=== PATIENT | male | born 1980 | race Two or more races ===

== ENCOUNTER 2016-04-17 14:01 | Inpatient (IN) | payer MEDICAID ==
--- NOTE | 2016-04-17 14:22 | ER Document Report ---
ED Hip Pain/Injury - General Stated Complaint: FALL/HIP PAIN Mode of Arrival: Medic Information source: Patient, Relative TRAVEL OUTSIDE OF THE [place] IN LAST 30 DAYS: No - HPI Patient complains to provider of: Injury - FELL Occurred: Just prior to arrival Where: Home Onset/Duration: Sudden Quality of pain: Sharp Severity: Severe Context: Fell/tripped Symptoms prior to fall: None Symptoms since fall: denies: Chest pain, Dizzy/light-headed, Rapid heart rate, Vomiting/diarrhea Skin Color: Normal Skin Temperature: Warm Rotation of extremity: Outward Pain with palpation of the pelvis: No Use of anticoagulant: No: ASA, Lovenox, Plavix, Pradexa, Warfarin Associated Symptoms: None Other injuries: LUE - ELBOW ABRASION, NO BONY TENDERNESS - Related Data Allergies/Adverse Reactions: Penicillins Allergy (Verified 12/10/14 19:34) Past Medical History - General Information source: Patient, Relative - Social History Smoking Status: Former Smoker Frequency of alcohol use: Rare Drug Abuse: None Lives with: Spouse/Significant other Family History: Reviewed & Not Pertinent Patient has suicidal ideation: No Patient has homicidal ideation: No - Past Medical History Cardiac Medical History: Reports: None Pulmonary Medical History: Reports: Hx Asthma - DX AT THE AGE 7 Neurological Medical History: Reports: None Endocrine Medical History: Reports: Hx Diabetes Mellitus Type 2 - DX 2 YEARS AGO Renal/ Medical History: Reports: None Malignancy Medical History: Reports None GI Medical History: Reports: None Musculoskeltal Medical History: Reports Hx Muscular Dystrophy Psychiatric Medical History: Reports: None Past Surgical History: Reports: Hx Adenoidectomy, Hx Tonsillectomy - 13 YEARS OLD - Immunizations Immunizations up to date: Yes Hx Diphtheria, Pertussis, Tetanus Vaccination: No Review of Systems - Review of Systems Constitutional: No symptoms reported EENT: No symptoms reported Cardiovascular: No symptoms reported Respiratory: No symptoms reported Gastrointestinal: No symptoms reported Genitourinary: No symptoms reported Musculoskeletal: See HPI Skin: No symptoms reported Neurological/Psychological: No symptoms reported Physical Exam - Vital signs Vitals: Temp Pulse Resp BP Pulse Ox 98.2 F 92 18 153/105 H 95 04/17/16 14:13 04/17/16 14:13 04/17/16 14:13 04/17/16 14:13 04/17/16 14:13 Interpretation: Hypertensive - General General appearance: Appears well, Alert In distress: None - HEENT Head: Normocephalic Eyes: Normal Conjunctiva: Normal Ears: Normal Nasal: Normal Mouth/Lips: Normal Mucous membranes: Dry Pharynx: Normal Neck: Normal - Respiratory Respiratory status: No respiratory distress Breath sounds: Normal - Cardiovascular Rhythm: Regular Heart sounds: Normal auscultation Murmur: No - Abdominal Inspection: Normal Distension: No distension Bowel sounds: Normal - Extremities General upper extremity: Normal inspection General lower extremity: No: Normal inspection - R. L.E. SHORTENED, EXT. ROTATED. L. HIP TENDER, PAINFUL PASSIVE MOTION IN ANY PLANE. - Neurological Neuro grossly intact: Yes Cognition: Normal Orientation: AAOx4 - Psychological Associated symptoms: Normal affect, Normal mood - Skin Skin Temperature: Warm Skin Moisture: Dry Skin Color: Normal Skin Turgor: Elastic Course - Vital Signs Vital signs: Temp Pulse Resp BP Pulse Ox 98.0 F 97 22 H 160/103 H 99 04/17/16 15:47 04/17/16 15:47 04/17/16 15:47 04/17/16 16:01 04/17/16 16:01 - Laboratory Result Diagrams: 04/17/16 16:38 04/17/16 16:38 Laboratory results interpreted by me: 04/17/16 04/17/16 04/17/16 16:38 16:38 16:47 WBC 18.3 H MCH 26.3 L Seg Neutrophils % 89.4 H Lymphocytes % 5.9 L Absolute Neutrophils 16.4 H ESR 30 H Creatinine 0.32 L Glucose 270 H Magnesium 1.5 L Creatine Kinase < 20 L Albumin 3.3 L Urine Glucose (UA) >=500 H Urine Urobilinogen 4.0 H - EKG Interpretation by N[place] EKG shows normal: Sinus rhythm, [place], Intervals, QRS Complexes, ST-T Waves Rate: Tachycardia - Consults DR. STRINGER Time consulted: 16:00 Consulted provider: will come to ER DR. PANDYA Time consulted: 17:55 Reason for consultation: 04/17/16 18:04 AGREES TO EVALUATE & MANAGE MEDICAL STATUS Consulted provider: will see as inpatient Discharge - Discharge Clinical Impression: Muscular dystrophy Hip subtrochanteric fracture Qualifiers: Encounter type: initial encounter Fracture type: closed Fracture alignment: displaced Laterality: right Qualified Code(s): S72.21XA - Displaced subtrochanteric fracture of right femur, initial encounter for closed fracture Diabetes mellitus Qualifiers: Diabetes mellitus type: type 2 Diabetes mellitus complication status: without complication Diabetes mellitus custodial insulin use: without custodial use Qualified Code(s): E11.9 - Type 2 diabetes mellitus without complications Condition: Stable Disposition: ADMITTED INPATIENT Admitting Provider: MYKE Unit Admitted: Surgical Floor
[2016-04-17] MEDS ORDERED: NORMAL SALINE 1000 ML 1,000 ML IV ONE (14:38)
[2016-04-17] MEDS ORDERED: FENTANYL CITRATE INJ/PF 100 MCG/2 ML AMPUL IV ONE (16:09)
[2016-04-17 17:04] LABS: ABSOLUTE BASOPHILS # (AUTO) 0.1 10^3/uL (0.0-0.2); ABSOLUTE LYMPHOCYTES (AUTO) 1.1 10^3/uL (0.5-4.7); ABSOLUTE MONOCYTES (AUTO) 0.8 10^3/uL (0.1-1.4); ABSOLUTE NEUT (AUTO) 16.4 10^3/uL (1.7-8.2); BASOPHILS % (AUTO) 0.3 % (0-2); EOSINOPHILS % (AUTO) 0.2 % (0-6); HEMATOCRIT 42.9 % (37.9-51.0); HEMOGLOBIN 13.9 g/dL (13.5-17.0); HGB HCT DIFFERENCE -1.2; LYMPHOCYTES % (AUTO) 5.9 % (13-45); MEAN CORPUSCULAR HEMOGLOBIN 26.3 pg (27.0-33.4); MEAN CORPUSCULAR HGB CONC 32.5 g/dL (32.0-36.0); MEAN CORPUSCULAR VOLUME 81 fl (80-97); MONOCYTES % (AUTO) 4.2 % (3-13); RED BLOOD COUNT 5.28 10^6/uL (4.35-5.55); SEGMENTED NEUTROPHILS % (AUTO) 89.4 % (42-78); WHITE BLOOD COUNT 18.3 10^3/uL (4.0-10.5)
[2016-04-17 17:16] LABS: ALANINE AMINOTRANSFERASE 29 U/L (21-72); ALBUMIN 3.3 g/dL (3.5-5.0); ALKALINE PHOSPHATASE 124 U/L (38-126); ANION GAP 10 (5-19); ASPARTATE AMINO TRANSFERASE 21 U/L (17-59); BILIRUBIN,TOTAL 0.6 mg/dL (0.2-1.3); BLOOD UREA NITROGEN 12 mg/dL (7-20); CALCIUM 8.5 mg/dL (8.4-10.2); CARBON DIOXIDE 28 mmol/L (22-30); CHLORIDE 100 mmol/L (98-107); CREATININE RESULT 0.32 mg/dL (0.52-1.25); GLUCOSE 270 mg/dL (75-110); MAGNESIUM 1.5 mg/dL (1.6-2.3); PHOSPHORUS 3.2 mg/dL (2.5-4.5); POTASSIUM 4.4 mmol/L (3.6-5.0); SODIUM 137.6 mmol/L (137-145); TOTAL PROTEIN 6.4 g/dL (6.3-8.2)
[2016-04-17 17:18] LABS: CREATINE KINASE < 20 U/L (55-170)
[2016-04-17 17:27] LABS: CREATINE KINASE MB 0.36 ng/mL (<4.55); TROPONIN I < 0.012 ng/mL
[2016-04-17 17:27] LABS: APPEARANCE,URINE CLEAR; BILIRUBIN,URINE NEGATIVE (NEGATIVE); GLUCOSE, URINE >=500 mg/dL (NEGATIVE); KETONES,URINE NEGATIVE (NEGATIVE); LEUKOCYTE ESTERASE,URINE NEGATIVE (NEGATIVE); NITRITE,URINE NEGATIVE (NEGATIVE); PROTEIN,URINE NEGATIVE (NEGATIVE); URINE SPECIFIC GRAVITY 1.028
[2016-04-17 17:47] LABS: ERYTHROCYTE SEDIMENTATION RATE 30 mm/hr (0-15)
--- NOTE | 2016-04-17 18:20 | PDOC H&P ---
History of Present Illness Admission Date/PCP: JENNA CAMPA MD Patient complains of: Left Hip Pain History of Present Illness: GAGAN MADDEN is a 35 year old male with history of type II diabetes and muscular dystrophy sustained a injury when he was attempting to transfer from a scooter at the [facility] and ultimately twisted his leg. Patient states he was unable to weight-bear has severe pain 10/10 with motion. Denies numbness or tingling. He has improved with current narcotic pain medication. With patient's history of muscular dystrophy he requires a cane and a rolling walker for ambulation. Past Medical History Cardiac Medical History: Reports: None Pulmonary Medical History: Reports: Asthma - DX AT THE AGE 7 Neurological Medical History: Reports: None Endocrine Medical History: Reports: Diabetes Mellitus Type 2 - DX 2 YEARS AGO Renal/ Medical History: Reports: None Malignancy Medical History: Reports: None GI Medical History: Reports: None Psychiatric Medical History: Reports: None Past Surgical History Past Surgical History: Reports: Tonsillectomy - 13 YEARS OLD Social History Lives with: Spouse/Significant other Smoking Status: Former Smoker - Advance Directive Resuscitation Status: Full Code Family History Family History: Reviewed & Not Pertinent, CAD Parental Family History Reviewed: Yes Children Family History Reviewed: Yes Sibling(s) Family History Reviewed.: Yes Medication/Allergy Home Medications: Hydrocodone/Acetaminophen [[place] 7.5-325 Tablet] 1 each PO Q6 PRN #12 tablet 03/18 Albuterol Sulfate [Albuterol Sulfate 2.5mg/3 mL] 1 vial IH Q4 PRN #30 vial 12/10 Azithromycin [Zithromax] 250 mg PO DAILY #6 tablet 12/10/14 Azithromycin [Zithromax] 250 mg PO DAILY #4 tablet 03/27/15 Allergies/Adverse Reactions: Penicillins Allergy (Verified 12/10/14 19:34) Review of Systems Constitutional: ABSENT: chills, fever(s), headache(s), weight gain, weight loss Eyes: ABSENT: visual disturbances Ears: ABSENT: hearing changes Cardiovascular: ABSENT: chest pain, dyspnea on exertion, edema, orthropnea, palpitations Respiratory: ABSENT: cough, hemoptysis Gastrointestinal: ABSENT: abdominal pain, constipation, diarrhea, hematemesis, hematochezia, nausea, vomiting Genitourinary: ABSENT: dysuria, hematuria Musculoskeletal: PRESENT: as per HPI Integumentary: ABSENT: rash, wounds Neurological: ABSENT: abnormal gait, abnormal speech, confusion, dizziness, focal weakness, syncope Psychiatric: ABSENT: anxiety, depression, homidical ideation, suicidal ideation Endocrine: ABSENT: cold intolerance, heat intolerance, menstrual abnormalities, polydipsia, polyuria Hematologic/Lymphatic: ABSENT: easy bleeding, easy bruising, lymphadenopathy Physical Exam Vital Signs: Temp Pulse Resp BP Pulse Ox 98.0 F 97 22 H 160/103 H 99 04/17/16 15:47 04/17/16 15:47 04/17/16 15:47 04/17/16 16:01 04/17/16 16:01 Intake & Output 04/16/16 04/17/16 04/18/16 06:59 06:59 06:59 Weight 136.078 kg General appearance: PRESENT: no acute distress, well-developed, well-nourished Head exam: PRESENT: atraumatic, normocephalic Eye exam: PRESENT: conjunctiva pink, EOMI, PERRLA. ABSENT: scleral icterus Ear exam: PRESENT: normal external ear exam Mouth exam: PRESENT: moist, tongue midline Teeth exam: PRESENT: poor dentation Neck exam: PRESENT: full ROM. ABSENT: carotid bruit, JVD, lymphadenopathy, thyromegaly Respiratory exam: PRESENT: unlabored, other - No chest wall tenderness. Cardiovascular exam: PRESENT: RRR. ABSENT: diastolic murmur, rubs, systolic murmur Pulses: PRESENT: normal dorsalis pedis pul, +2 pedal pulses bilateral Vascular exam: PRESENT: normal capillary refill GI/Abdominal exam: PRESENT: normal bowel sounds, soft. ABSENT: distended, guarding, mass, organolmegaly, rebound, tenderness Rectal exam: PRESENT: deferred Musculoskeletal exam: PRESENT: other - Left lower extremity: External rotated. Positive log roll. Intact plantar flexion/dorsiflexion. No sensory deficits. Dorsalis pedis pulse 2+. Thigh swollen but compartment soft and compressible no sign of compartment syndrome. Patient has tenderness along the lateral fibula. No tenderness of the right lower extremity and bilateral upper extremities. Neurological exam: PRESENT: alert, awake, oriented to person, oriented to place , oriented to time, oriented to situation, CN II-XII grossly intact. ABSENT: motor sensory deficit Psychiatric exam: PRESENT: appropriate affect, normal mood. ABSENT: homicidal ideation, suicidal ideation Skin exam: PRESENT: dry, intact, warm. ABSENT: cyanosis, rash Results Laboratory Results: 04/17/16 16:38 04/17/16 16:38 04/17/16 04/17/16 04/17/16 16:38 16:38 16:47 WBC 18.3 H RBC 5.28 Hgb 13.9 Hct 42.9 MCV 81 MCH 26.3 L MCHC 32.5 RDW 14.0 Plt Count 211 Seg Neutrophils % 89.4 H Lymphocytes % 5.9 L Monocytes % 4.2 Eosinophils % 0.2 Basophils % 0.3 Absolute Neutrophils 16.4 H Absolute Lymphocytes 1.1 Absolute Monocytes 0.8 Absolute Eosinophils 0.0 Absolute Basophils 0.1 Sodium 137.6 Potassium 4.4 Chloride 100 Carbon Dioxide 28 Anion Gap 10 BUN 12 Creatinine 0.32 L Est GFR ( Amer) > 60 Est GFR (Non-Af Amer) > 60 Glucose 270 H Calcium 8.5 Phosphorus 3.2 Magnesium 1.5 L Total Bilirubin 0.6 AST 21 ALT 29 Alkaline Phosphatase 124 Total Protein 6.4 Albumin 3.3 L Urine Color YELLOW Urine Appearance CLEAR Urine pH 7.0 Ur Specific [place] 1.028 Urine Protein NEGATIVE Urine Glucose (UA) >=500 H Urine Ketones NEGATIVE Urine Blood NEGATIVE Urine Nitrite NEGATIVE Ur Leukocyte Esterase NEGATIVE Urine WBC (Auto) 1 Urine RBC (Auto) 0 04/17/16 04/17/16 16:38 16:38 Creatine Kinase < 20 L CK-MB (CK-2) 0.36 Troponin I < 0.012 Impressions: Hip X-Ray 04/17/16 14:22 IMPRESSION: Acute spiral fracture left proximal femoral diaphysis with varus angulation and foreshortening Lower Extremity CT 04/17/16 16:08 IMPRESSION: STABLE APPEARANCE OF LEFT SUBTROCHANTERIC FEMUR FRACTURE WITHOUT DEFINITE PATHOLOGIC LESION IDENTIFIED. ADDITIONAL NOTE IS MADE OF DIFFUSE MUSCULAR ATROPHY SUGGESTIVE OF UNDERLYING CHRONIC MEDICAL CONDITION. CORRELATE WITH PATIENT'S CLINICAL HISTORY. Status: Image reviewed by me - I have reviewed patient's left hip radiographs and CT scan which demonstrates a long oblique/spiral fracture of the proximal femur. No evidence of questionable lytic lesions. No soft tissue abnormalities appreciated. Assessment & Plan - Diagnosis (2) Hip subtrochanteric fracture Qualifiers: Encounter type: initial encounter Fracture type: closed Fracture alignment: displaced Laterality: left Qualified Code(s): S72.22XA - Displaced subtrochanteric fracture of left femur, initial encounter for closed fracture Is this a current diagnosis for this admission?: YesPlan: Patient has sustained a fairly low energy left proximal femur fracture CT scan demonstrates no evidence of questionable lytic lesion or malignancy and thus the cause of his injury related to his chronic muscular dystrophy. Today we discussed treatment options. I have recommended operative intervention including a left hip intramedullary nail. Patient will be seen evaluated by the hospitalist who has type II diabetes and medical optimization. We will proceed with operative intervention within the next 24 hours. Risks and benefits of the operative procedure have been explained to the patient patient verbalized understanding consented for the procedure.
[2016-04-17] MEDS ORDERED: DEXTROSE 50%-WATER 25 GM/50 ML DISP.SYRIN IV PRN ×2 (18:53)
[2016-04-17] MEDS ORDERED: GLUCAGON,HUMAN RECOMB 1 MG INJ IM PRN (18:53)
[2016-04-17] MEDS ORDERED: DEXTROSE 40% GEL 15 GM TUBE PO PRN ×2 (18:53)
[2016-04-17] MEDS ORDERED: IPRATROPIUM/ALBUTEROL 0.5-2.5 MG/3 ML AMPUL NEB PRN (18:56)
[2016-04-17] MEDS ORDERED: MORPHINE SULFATE 10 MG/ML INJ ONE (21:19)
[2016-04-17] MEDS ORDERED: MORPHINE SULFATE 10 MG/ML INJ IV ONE (23:00)
[2016-04-17] MEDS: MORPHINE SULFATE 10 MG/ML INJ IV PRN (23:30)
[2016-04-17] MEDS: ZOLPIDEM TARTRATE 5 MG TABLET PO SCH (23:42)
[2016-04-18] MEDS: RINGERS SOLUTION,LACTATED 1,000 ML IV PRN (00:13)
[2016-04-18] MEDS: MORPHINE SULFATE 10 MG/ML INJ IV PRN (05:06)
[2016-04-18 07:07] LABS: HEMATOCRIT 44.6 % (37.9-51.0); HEMOGLOBIN 14.2 g/dL (13.5-17.0); MEAN CORPUSCULAR HEMOGLOBIN 26.1 pg (27.0-33.4); MEAN CORPUSCULAR HGB CONC 31.9 g/dL (32.0-36.0); MEAN CORPUSCULAR VOLUME 82 fl (80-97); RED BLOOD COUNT 5.45 10^6/uL (4.35-5.55); RED CELL DISTRIBUTION WIDTH 14.1 % (11.5-14.0)
[2016-04-18 07:28] LABS: ALBUMIN 3.8 g/dL (3.5-5.0); ANION GAP 12 (5-19); BLOOD UREA NITROGEN 9 mg/dL (7-20); CALCIUM 8.8 mg/dL (8.4-10.2); CARBON DIOXIDE 25 mmol/L (22-30); CHLORIDE 99 mmol/L (98-107); CREATININE RESULT 0.32 mg/dL (0.52-1.25); GLUCOSE 293 mg/dL (75-110); POTASSIUM 4.3 mmol/L (3.6-5.0); SODIUM 136.3 mmol/L (137-145); TOTAL PROTEIN 6.7 g/dL (6.3-8.2)
[2016-04-18 07:29] LABS: ALANINE AMINOTRANSFERASE 31 U/L (21-72); ALKALINE PHOSPHATASE 109 U/L (38-126); ASPARTATE AMINO TRANSFERASE 11 U/L (17-59); BILIRUBIN,TOTAL 1.1 mg/dL (0.2-1.3)
--- NOTE | 2016-04-18 09:25 | EKG REPORT ---
SEVERITY:- OTHERWISE NORMAL ECG - SINUS TACHYCARDIA : Confirmed by: Maritza Carbajal MD 18-Apr-2016 09:25:06
[2016-04-18] MEDS ORDERED: MIDAZOLAM 2 MG/2 ML INJ ONE (09:49)
[2016-04-18] MEDS ORDERED: FENTANYL CITRATE INJ/PF 250 MCG/5 ML AMPULE ONE (09:49)
[2016-04-18] MEDS ORDERED: HYDROMORPHONE HCL INJ/PF 2 MG/ML AMPULE ONE (09:49)
[2016-04-18] MEDS ORDERED: PROPOFOL INJ 200 MG/20 ML VIAL IV ONE ×2 (09:50→13:16)
[2016-04-18] MEDS ORDERED: CEFAZOLIN INJ 1 GM VIAL ONE (10:00)
[2016-04-18] MEDS ORDERED: CLINDAMYCIN PHOSPHATE INJ 300 MG/2 ML SDV ONE ×2 (10:01→10:04)
[2016-04-18] MEDS: INSULIN LISPRO 100 UNIT/ML 3 ML VIAL SUBCUT PRN ×3 (10:02→22:08)
[2016-04-18] MEDS ORDERED: MORPHINE SULFATE 10 MG/ML INJ IV PRN ×4 (10:58→12:44)
[2016-04-18] MEDS ORDERED: PROMETHAZINE HCL INJ 25 MG/1 ML VIAL IV PRN ×2 (10:58)
[2016-04-18] MEDS ORDERED: MEPERIDINE HCL/PF INJ 25 MG/1 ML DISP.SYRIN IV PRN (10:58)
[2016-04-18] MEDS ORDERED: FENTANYL CITRATE INJ/PF 100 MCG/2 ML AMPUL IV PRN ×3 (10:58)
[2016-04-18] MEDS ORDERED: DIPHENHYDRAMINE HCL 50 MG/ML VIAL IV PRN ×2 (10:58→12:44)
[2016-04-18] MEDS: DOCUSATE SODIUM 100 MG CAPSULE PO SCH (11:03)
[2016-04-18] MEDS ORDERED: RINGERS SOLUTION,LACTATED 1,000 ML IV PRN (12:41)
--- NOTE | 2016-04-18 12:42 | PDOC CONSULTATION ---
History of Present Illness Admission Date/PCP: 04/17/16 18:24 Patient complains of: fall with hip pain History of Present Illness: GAGAN MADDEN is a 35 year old male with history of type II diabetes and muscular dystrophy sustained a injury when he was attempting to transfer from a scooter at the [facility] and ultimately twisted his leg. Patient states he was unable to weight-bear has severe pain 10/10 with motion. Denies numbness or tingling. He has improved with current narcotic pain medication. With patient's history of muscular dystrophy he requires a cane and a rolling walker for ambulation. He reports that his rolling walker is no longer functional and he was denied and because his prescription is less than 1-year-old. Therefore he uses only a cane for ambulation at present. Evaluation in the emergency room showed a femur fracture, or speaks surgeon is agreed to accept the patient for admission and asked that we follow along to manage his diabetes. She reports she has not been taking his diabetic medication for about a month states his blood sugars were always elevated with reduction medication or not so he didn't see a purpose of it anymore. He reports blood sugars greater than 400 when he took the time to check them. He reports having glucometer and appropriate supplies available to him at home. Past Medical History Cardiac Medical History: Reports: None Pulmonary Medical History: Reports: Asthma - DX AT THE AGE 7 Neurological Medical History: Reports: None Endocrine Medical History: Reports: Diabetes Mellitus Type 2 - DX 2 YEARS AGO Renal/ Medical History: Reports: None Malignancy Medical History: Reports: None GI Medical History: Reports: None Psychiatric Medical History: Reports: None Past Surgical History Past Surgical History: Reports: Tonsillectomy - 13 YEARS OLD Social History Information Source: Patient Lives with: Spouse/Significant other Smoking Status: Former Smoker Last Time Smoked: 2014 Frequency of Alcohol Use: Social Hx Prescription Drug Abuse: No - Advance Directive Resuscitation Status: Full Code Family History Family History: Reviewed & Not Pertinent, CAD Parental Family History Reviewed: Yes Children Family History Reviewed: Yes Sibling(s) Family History Reviewed.: Yes Medication/Allergy Home Medications: Cyclobenzaprine HCl [Flexeril 5 mg Tablet] 5 mg PO DAILY 04/17/16 Metformin HCl 1,000 mg PO BID 04/17/16 Allergies/Adverse Reactions: Penicillins Allergy (Verified 12/10/14 19:34) Review of Systems Constitutional: ABSENT: chills, fever(s), headache(s), weight gain, weight loss Eyes: ABSENT: visual disturbances Ears: ABSENT: hearing changes Cardiovascular: ABSENT: chest pain, dyspnea on exertion, edema, orthropnea, palpitations Respiratory: ABSENT: cough, hemoptysis Gastrointestinal: ABSENT: abdominal pain, constipation, diarrhea, hematemesis, hematochezia, nausea, vomiting Genitourinary: ABSENT: dysuria, hematuria Musculoskeletal: PRESENT: muscle weakness - Chronic due to his muscular dystrophy Integumentary: ABSENT: rash, wounds Neurological: PRESENT: abnormal gait - Chronic and due to his muscular dystrophy , focal weakness. ABSENT: abnormal speech, confusion, dizziness, syncope Psychiatric: ABSENT: anxiety, depression, homidical ideation, suicidal ideation Endocrine: ABSENT: cold intolerance, heat intolerance, polydipsia, polyuria Hematologic/Lymphatic: ABSENT: easy bleeding, easy bruising Physical Exam Vital Signs: Temp Pulse Resp BP Pulse Ox 98.3 F 104 H 20 143/84 H 97 04/17/16 23:42 04/17/16 23:42 04/17/16 23:42 04/17/16 23:42 04/17/16 23:42 Intake & Output 04/17/16 04/18/16 04/19/16 06:59 06:59 06:59 Intake Total 0 Output Total 750 Balance -750 Weight 139.2 kg General appearance: PRESENT: no acute distress, obese, well-nourished, other - Diffuse muscle wasting of the extremities Head exam: PRESENT: atraumatic, normocephalic Eye exam: PRESENT: conjunctiva pink, EOMI, PERRLA. ABSENT: scleral icterus Mouth exam: PRESENT: moist, tongue midline Neck exam: ABSENT: carotid bruit, JVD, lymphadenopathy, thyromegaly Respiratory exam: PRESENT: clear to auscultation brenda. ABSENT: rales, rhonchi, wheezes Cardiovascular exam: PRESENT: RRR. ABSENT: diastolic murmur, rubs, systolic murmur Pulses: PRESENT: normal dorsalis pedis pul Vascular exam: PRESENT: normal capillary refill GI/Abdominal exam: PRESENT: normal bowel sounds, soft. ABSENT: distended, guarding, mass, organolmegaly, rebound, tenderness Rectal exam: PRESENT: deferred Extremities exam: PRESENT: full ROM. ABSENT: calf tenderness, pedal edema Musculoskeletal exam: PRESENT: tenderness - Along the left thigh Neurological exam: PRESENT: alert, awake, oriented to person, oriented to place , oriented to time, oriented to situation, other - No loss of sensation globally Psychiatric exam: PRESENT: appropriate affect, normal mood Skin exam: PRESENT: dry, intact, warm. ABSENT: cyanosis, rash Results Laboratory Results: 04/18/16 06:40 04/18/16 06:40 04/18/16 04/18/16 06:40 06:40 WBC 13.0 H RBC 5.45 Hgb 14.2 Hct 44.6 MCV 82 MCH 26.1 L MCHC 31.9 L RDW 14.1 H Plt Count 197 Sodium 136.3 L Potassium 4.3 Chloride 99 Carbon Dioxide 25 Anion Gap 12 BUN 9 Creatinine 0.32 L Est GFR ( Amer) > 60 Est GFR (Non-Af Amer) > 60 Glucose 293 H Calcium 8.8 Total Bilirubin 1.1 AST 11 L ALT 31 Alkaline Phosphatase 109 Total Protein 6.7 Albumin 3.8 Impressions: Ankle X-Ray 04/17/16 00:00 IMPRESSION: NO ACUTE OSSEOUS ABNORMALITY IDENTIFIED. CHRONIC CHANGES ABOVE INCLUDING UNDULATION INVOLVING THE POSTEROLATERAL CORTEX OF VISUALIZED FIBULAR DIAPHYSIS COULD BE SECONDARY TO UNDERLYING METABOLIC BONE DISORDER. CORRELATE WITH CLINICAL HISTORY. Hip X-Ray 04/17/16 14:22 IMPRESSION: Acute spiral fracture left proximal femoral diaphysis with varus angulation and foreshortening Lower Extremity CT 04/17/16 16:08 IMPRESSION: STABLE APPEARANCE OF LEFT SUBTROCHANTERIC FEMUR FRACTURE WITHOUT DEFINITE PATHOLOGIC LESION IDENTIFIED. ADDITIONAL NOTE IS MADE OF DIFFUSE MUSCULAR ATROPHY SUGGESTIVE OF UNDERLYING CHRONIC MEDICAL CONDITION. CORRELATE WITH PATIENT'S CLINICAL HISTORY. Assessment & Plan - Diagnosis (1) Closed left subtrochanteric femur fracture Is this a current diagnosis for this admission?: YesPlan: Per orthopedic surgeon. Will likely need placement for rehabilitation. (2) Diabetes mellitus Qualifiers: Diabetes mellitus type: type 2 Diabetes mellitus complication status: with hyperglycemia Diabetes mellitus jail insulin use: without jail use Qualified Code(s): E11.65 - Type 2 diabetes mellitus with hyperglycemia Is this a current diagnosis for this admission?: YesPlan: Poorly controlled, hemoglobin A1c of 11.2. Patient freely admits to medical noncompliance. Continue to cover with sliding scale and we will address his oral regimen at discharge. He is not interested in starting insulin at this time. (3) Muscular dystrophy Is this a current diagnosis for this admission?: YesPlan: At baseline. Follows with Dr. Reveles as needed. - Time Time Spent: 30 to 50 Minutes Anticipated discharge: Acute Rehab Within: within 72 hours
[2016-04-18] MEDS ORDERED: ONDANSETRON 4 MG TAB.RAPDIS PO PRN (12:44)
[2016-04-18] MEDS ORDERED: MORPHINE SULFATE 10 MG/ML INJ IM PRN (12:44)
[2016-04-18] MEDS ORDERED: FENTANYL CITRATE INJ/PF 100 MCG/2 ML AMPUL ONE (12:48)
[2016-04-18] MEDS ORDERED: ACETAMINOPHEN 100 ML IV ONE ×3 (12:49→18:45)
[2016-04-18] MEDS ORDERED: KETOROLAC TROMETHAMINE INJ/PF 30 MG/1 ML SDV ONE (12:49)
--- NOTE | 2016-04-18 12:51 | Operative Report ---
Operative Report DATE OF SURGERY: 04/18/16 PREOPERATIVE DIAGNOSIS: Left Proximal Femur Fracture POSTOPERATIVE DIAGNOSIS: Same OPERATION: Left Cephalomedullary Nail Proximal Femur Fracture SURGEON: NAYELI STRINGER ANESTHESIA: GA COMPLICATIONS: None ESTIMATED BLOOD LOSS: 150cc PROCEDURE: Indication for above procedure: 35-year-old male with history of muscular dystrophy and type II diabetes was at [facility] when he inadvertently twisted his left leg resulting in a fall onto his left hip. Patient was brought by EMS to the emergency room where x- rays demonstrated a proximal femur fracture. At that point I discussed treatment options with the patient and family including operative intervention. Risks and benefits were explained patient verbalized understanding and consented for the procedure. Patient was seen and evaluated in the preoperative holding area. The right lower extremity was initialized and marked. Patient received clindamycin IV for bacterial prophylaxis. Patient was taken back to the operative room where transferred operative table. Patient was placed under spinal anesthesia. Once adequate anesthetized he was carefully placed onto the hip positioner the nonoperative lower extremity and bilateral upper extremities were carefully padded and the peroneal nerve was padded and on the nonoperative extremity. The operative extremity was placed in a traction along with adduction and external rotation. A surgical team debriefing was performed ensuring all instrumentation was available, the surgical procedure was discussed with possible concerns reviewed. A timeout was done identifying correct patient, procedure and extremity everyone in attendance agree with this and verbalized no concerns. Reduction maneuver with the use of the hip traction table were done and C-arm fluoroscopy was used to confirm optimal reduction of the proximal fracture. Once this was confirmed the lower extremity was prepped with chlor prep and draped in a sterile fashion. At this point a small skin incision was made proximal to the greater trochanter. The guidewire was placed onto the tip of the trochanter advanced down to the level of the lesser trochanter. AP and lateral fluoroscopy was used to confirm appropriate placement of the guidewire. The skin incision was then extended and the underlying fascia opened up carefully to the tip of the greater trochanter. The entry reamer was then used and advanced to the level of the lesser trochanter. I then placed the ball-tipped guidewire down the femoral shaft to the physeal scar of the distal femur. I measured a 420 mm nail length and then proceeded with reaming. I reamed from a 9 mm up to a 13 mm reamer for placement of a 11 mm x 420 mm 125 gamma nail. The long nail was then inserted into the femoral shaft AP and lateral fluoroscopy were obtained demonstrating maintained reduction of the proximal femur fracture. Then turned my attention to the compression screw fixation in the femoral head. The trochars were advanced to the skin, a skin incision was made, careful dissection down to the fascia to the lateral femoral cortex was then partaken. The guidewire was then used and placed in the center center position with the tip apex distance less than 25 mm. Once this position was obtained the size of the compression screw was measured. AP and lateral fluoroscopy used to confirm appropriate placement of our guide wire. The step reamer was used to drill up through the femoral neck and head. I then carefully advanced the compression screw into position. AP and lateral fluoroscopy was done to confirm appropriate placement of the compression screw this was then locked into position proximally. The compression screw was then disengaged from its mounting device and the guidewire was removed. Lastly proceeded with locking of the nail distally. Perfect circles were obtained a small stab incision was made at the level of the oblong and static holes. Dissection through soft tissue was done bluntly with a hemostat. The near and far cortices were drilled and C-arm fluoroscopy was obtained confirming appropriate drill trajectory. I then placed a 60 mm and a 50 mm screw in the distal and proximal holes respectively. Final fluoroscopy was obtained demonstrating appropriate placement of the screws. AP was obtained confirming appropriate screw lengths. Final radiographs of the fracture site, femoral shaft and proximal femur were obtained demonstrating optimal reduction of the fracture. Once this was confirmed I proceeded with copious irrigation of the proximal and distal wounds. The deep tissues were closed with 0 Vicryl suture, subcutaneous tissues were closed with 3-0 Monocryl suture. The skin was closed a running 3-0 subcuticular Monocryl suture and reinforced with Dermabond & Steri-Strips. A dressing was placed. Sponge counts, instrument counts and needle counts were correct. Patient was then transferred from the operating room table to the operating room stretcher. The was no intraoperative complications patient tolerated procedure well was stable to PACU. Implants used: Jill 11 mm x 420 mm 125 Long Gamma Nail with a 100 mm compression screw Postoperative plan: Patient will begin weightbearing as tolerated in physical therapy on postop day #1 with Xarelto daily.
[2016-04-18] MEDS ORDERED: LIDOCAINE 2% INJ-PF (20 MG/ML) 10 ML AMPUL ONE (13:29)
[2016-04-18] MEDS ORDERED: ONDANSETRON HCL INJ/PF 4 MG/2 ML SDV ONE (13:29)
[2016-04-18] MEDS ORDERED: KETOROLAC TROMETHAMINE INJ/PF 30 MG/1 ML SDV IV PRN (14:15)
[2016-04-18] MEDS: CLINDAMYCIN 600 MG/D5W RTU 50 ML IV SCH ×2 (16:08→22:04)
[2016-04-18] MEDS ORDERED: POTASSIUM CHLORIDE 10 MEQ TABLET.SA PO ONE (16:30)
[2016-04-18] MEDS ORDERED: METOPROLOL TARTRATE 25 MG TABLET PO ONE (17:00)
[2016-04-18] MEDS: CELECOXIB 200 MG CAPSULE PO SCH (17:09)
[2016-04-18] MEDS ORDERED: KETOROLAC TROMETHAMINE INJ/PF 30 MG/1 ML SDV IV SCH (18:00)
[2016-04-18 18:53] LABS: CREATINE KINASE MB 0.57 ng/mL (<4.55)
[2016-04-18 18:56] LABS: TROPONIN I < 0.012 ng/mL
[2016-04-18] MEDS: OXYCODONE HCL SR 10 MG TABLET PO SCH (22:05)
[2016-04-18] MEDS: PREGABALIN 75 MG CAPSULE PO SCH (22:06)
[2016-04-18] MEDS: ZOLPIDEM TARTRATE 5 MG TABLET PO SCH (22:06)
[2016-04-18] MEDS: RIVAROXABAN 10 MG TABLET PO SCH (22:06)
[2016-04-18] MEDS: METOPROLOL TARTRATE 25 MG TABLET PO SCH (22:06)
[2016-04-19 04:54] LABS: HEMATOCRIT 40.3 % (37.9-51.0); HEMOGLOBIN 12.6 g/dL (13.5-17.0); HGB HCT DIFFERENCE -2.5; MEAN CORPUSCULAR HEMOGLOBIN 25.8 pg (27.0-33.4); MEAN CORPUSCULAR HGB CONC 31.3 g/dL (32.0-36.0); MEAN CORPUSCULAR VOLUME 83 fl (80-97); RED BLOOD COUNT 4.89 10^6/uL (4.35-5.55); RED CELL DISTRIBUTION WIDTH 14.1 % (11.5-14.0); WHITE BLOOD COUNT 12.9 10^3/uL (4.0-10.5)
[2016-04-19 05:15] LABS: ANION GAP 11 (5-19); BLOOD UREA NITROGEN 14 mg/dL (7-20); CALCIUM 8.1 mg/dL (8.4-10.2); CARBON DIOXIDE 26 mmol/L (22-30); CHLORIDE 100 mmol/L (98-107); CREATININE RESULT 0.33 mg/dL (0.52-1.25); GLUCOSE 251 mg/dL (75-110); POTASSIUM 4.4 mmol/L (3.6-5.0); SODIUM 136.6 mmol/L (137-145)
[2016-04-19] MEDS: CLINDAMYCIN 600 MG/D5W RTU 50 ML IV SCH (05:50)
[2016-04-19] MEDS: LANSOPRAZOLE 30 MG TAB.RAP.DR PO SCH (05:50)
[2016-04-19] MEDS: OXYCODONE-ACETAMINOPHEN 5-325 MG TABLET PO PRN ×2 (06:18→16:42)
[2016-04-19] MEDS: PREGABALIN 75 MG CAPSULE PO SCH ×2 (09:16→22:52)
[2016-04-19] MEDS: DOCUSATE SODIUM 100 MG CAPSULE PO SCH (09:16)
[2016-04-19] MEDS: OXYCODONE HCL SR 10 MG TABLET PO SCH ×2 (09:17→22:52)
[2016-04-19] MEDS: METOPROLOL TARTRATE 25 MG TABLET PO SCH ×2 (09:18→23:28)
--- NOTE | 2016-04-19 10:16 | EKG REPORT ---
SEVERITY:- BORDERLINE ECG - SINUS TACHYCARDIA PROBABLE LEFT ATRIAL ABNORMALITY BORDERLINE LEFT AXIS DEVIATION MINIMAL ST DEPRESSION, INFERIOR LEADS : Confirmed by: Maritza Carbajal MD 19-Apr-2016 10:15:49
[2016-04-19] MEDS: CELECOXIB 200 MG CAPSULE PO SCH ×2 (11:12→17:40)
[2016-04-19] MEDS: INSULIN LISPRO 100 UNIT/ML 3 ML VIAL SUBCUT PRN ×3 (11:39→23:35)
--- NOTE | 2016-04-19 11:49 | PDOC PROGRESS REPORT ---
Subjective Progress Note for:: 04/19/16 Subjective:: GAGAN MADDEN is a 35 year old male with history of type II diabetes and muscular dystrophy sustained a injury when he was attempting to transfer from a scooter at the [facility] and ultimately twisted his leg. Patient states he was unable to weight-bear has severe pain 10/10 with motion. Denies numbness or tingling. He has improved with current narcotic pain medication. With patient's history of muscular dystrophy he requires a cane and a rolling walker for ambulation. He reports that his rolling walker is no longer functional and he was denied and because his prescription is less than 1-year-old. Therefore he uses only a cane for ambulation at present. Evaluation in the emergency room showed a femur fracture, or speaks surgeon is agreed to accept the patient for admission and asked that we follow along to manage his diabetes. She reports she has not been taking his diabetic medication for about a month states his blood sugars were always elevated with reduction medication or not so he didn't see a purpose of it anymore. He reports blood sugars greater than 400 when he took the time to check them. He reports having glucometer and appropriate supplies available to him at home. He underwent successful surgical repair of his fracture, please see orthopedics up note for details. The patient complains of transient numbness in his left arm immediately post procedure. This was described as heaviness in his arm and some clumsiness it was localized to the entire arm yesterday but by this morning now focuses on the first through third digits of his hand and the lateral aspect of his forearm only. I suspect this has something to do with positioning during the procedure as it is already resolving without further intervention. He did undergo an EKG and cardiac enzymes to make sure this was not a cardiac equivalent both of which were negative. Physical Exam Vital Signs: Temp Pulse Resp BP Pulse Ox 98.4 F 69 18 116/63 100 04/19/16 07:31 04/19/16 07:31 04/19/16 07:31 04/19/16 07:31 04/19/16 07:31 Pulse Oximeter Continuous Start: 04/18/16 13: 34 Freq: RTQ4 Status: Active Document 04/19/16 04:00 SFL (Rec: 04/19/16 05:26 SFL [email or web address]) Pulse Oximetry Assessment Oxygen Saturation (92-100) 98 Oxygen Flow Rate (L/min) 2 Oxygen Delivery Method Nasal Cannula Equipment Usage Equipment in Use Continuous SpO2 Machine # 7 Intake & Output 04/18/16 04/19/16 04/20/16 06:59 06:59 06:59 Intake Total 0 3850 Output Total 750 1325 Balance -750 2525 Weight 139.2 kg General appearance: PRESENT: no acute distress, obese, well-developed Head exam: PRESENT: atraumatic, normocephalic Eye exam: PRESENT: conjunctiva pink, EOMI, PERRLA. ABSENT: scleral icterus Mouth exam: PRESENT: moist, tongue midline Neck exam: ABSENT: carotid bruit, JVD, lymphadenopathy, thyromegaly Respiratory exam: PRESENT: clear to auscultation brenda. ABSENT: rales, rhonchi, wheezes Cardiovascular exam: PRESENT: RRR. ABSENT: diastolic murmur, rubs, systolic murmur Vascular exam: PRESENT: normal capillary refill GI/Abdominal exam: PRESENT: normal bowel sounds, soft. ABSENT: distended, guarding, rebound, tenderness Rectal exam: PRESENT: deferred Extremities exam: ABSENT: calf tenderness, full ROM - Limited due to pain in the left hip Musculoskeletal exam: PRESENT: other - Diffuse muscle wasting as before. Neurological exam: PRESENT: alert, awake, oriented to person, oriented to place , oriented to time, oriented to situation Psychiatric exam: PRESENT: appropriate affect, normal mood Skin exam: PRESENT: other - Surgical wound covered with a bandage that is clean dry and intact. Results Laboratory Results: 04/19/16 03:59 04/19/16 04:02 04/18/16 04/19/16 04/19/16 19:40 03:59 04:02 WBC 12.9 H RBC 4.89 Hgb 12.6 L Hct 40.3 MCV 83 MCH 25.8 L MCHC 31.3 L RDW 14.1 H Plt Count 190 Sodium 136.6 L Potassium 4.3 4.4 Chloride 100 Carbon Dioxide 26 Anion Gap 11 BUN 14 Creatinine 0.33 L Est GFR ( Amer) > 60 Est GFR (Non-Af Amer) > 60 Glucose 251 H Calcium 8.1 L 04/18/16 04/18/16 18:19 18:19 Creatine Kinase 45 L CK-MB (CK-2) 0.57 Troponin I < 0.012 Impressions: Ankle X-Ray 04/17/16 00:00 IMPRESSION: NO ACUTE OSSEOUS ABNORMALITY IDENTIFIED. CHRONIC CHANGES ABOVE INCLUDING UNDULATION INVOLVING THE POSTEROLATERAL CORTEX OF VISUALIZED FIBULAR DIAPHYSIS COULD BE SECONDARY TO UNDERLYING METABOLIC BONE DISORDER. CORRELATE WITH CLINICAL HISTORY. Hip X-Ray 04/17/16 14:22 IMPRESSION: Acute spiral fracture left proximal femoral diaphysis with varus angulation and foreshortening Lower Extremity CT 04/17/16 16:08 IMPRESSION: STABLE APPEARANCE OF LEFT SUBTROCHANTERIC FEMUR FRACTURE WITHOUT DEFINITE PATHOLOGIC LESION IDENTIFIED. ADDITIONAL NOTE IS MADE OF DIFFUSE MUSCULAR ATROPHY SUGGESTIVE OF UNDERLYING CHRONIC MEDICAL CONDITION. CORRELATE WITH PATIENT'S CLINICAL HISTORY. Femur X-Ray 04/18/16 00:00 IMPRESSION: IMAGE(S) OBTAINED DURING PROCEDURE. Fluoroscopy 04/18/16 00:00 IMPRESSION: Please see combined report for performance of procedure and radiologic supervision and interpretation. Assessment & Plan - Diagnosis (1) Closed left subtrochanteric femur fracture Is this a current diagnosis for this admission?: YesPlan: Per orthopedic surgeon. Will likely need placement for rehabilitation. 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 Patient freely admits to medical noncompliance. Continue to cover with sliding scale and we will address his oral regimen at discharge. He is not interested in starting insulin at this time. (3) Muscular dystrophy Is this a current diagnosis for this admission?: YesPlan: At baseline. Follows with Dr. Reveles as needed. (4) Paresthesia of left arm Is this a current diagnosis for this admission?: YesPlan: Improving, likely positional after surgery. Continue to monitor. - Time Time Spent with patient: 25-34 minutes
[2016-04-19] MEDS: RINGERS SOLUTION,LACTATED 1,000 ML IV PRN (12:36)
--- NOTE | 2016-04-19 16:09 | PDOC PROGRESS REPORT ---
Subjective Progress Note for:: 04/19/16 Subjective:: Patient seen and evaluated. Pain controlled. Was able to stand with therapy but required max assistance. Was complaining of numbness in his left hand which has improved although he has some residual numbness and tingling. Denies headache dizziness or loss of consciousness. Current pain 10/12. Denies chest pain or shortness of breath. Physical Exam Vital Signs: Temp Pulse Resp BP Pulse Ox 97.7 F 87 20 127/64 H 96 04/19/16 11:07 04/19/16 11:07 04/19/16 11:07 04/19/16 11:07 04/19/16 12:00 Pulse Oximeter Continuous Start: 04/18/16 13: 34 Freq: RTQ4 Status: Active Document 04/19/16 12:00 [facility] (Rec: 04/19/16 14:04 [facility] [email or web address]) Pulse Oximetry Assessment Oxygen Saturation (92-100) 96 Oxygen Delivery Method Room Air Equipment Usage Equipment in Use Continuous SpO2 Machine # 7 Intake & Output 04/18/16 04/19/16 04/20/16 06:59 06:59 06:59 Intake Total 0 3850 Output Total 750 1325 Balance -750 2525 Weight 139.2 kg Musculoskeletal exam: PRESENT: other - Left lower extremity: Dressing clean/dry/ intact no erythema or drainage. Moderate thigh swelling. Compartments soft and compressible no sign of compartment syndrome. No calf tenderness. Intact plantar flexion/dorsiflexion. No sensory deficits. Left upper extremity: Hypoesthesias along the dorsum of the forearm. Full elbow wrist and hand range of motion. EPL/FPL are intact. Wrist flexion/extension 5/5. Patient is to make full composite fist. Neurological exam: PRESENT: alert, awake, oriented to person, oriented to place , oriented to time, oriented to situation, CN II-XII grossly intact, other - No evidence of facial droop Results Laboratory Results: 04/19/16 03:59 04/19/16 04:02 04/18/16 04/19/16 04/19/16 19:40 03:59 04:02 WBC 12.9 H RBC 4.89 Hgb 12.6 L Hct 40.3 MCV 83 MCH 25.8 L MCHC 31.3 L RDW 14.1 H Plt Count 190 Sodium 136.6 L Potassium 4.3 4.4 Chloride 100 Carbon Dioxide 26 Anion Gap 11 BUN 14 Creatinine 0.33 L Est GFR ( Amer) > 60 Est GFR (Non-Af Amer) > 60 Glucose 251 H Calcium 8.1 L 04/18/16 04/18/16 18:19 18:19 Creatine Kinase 45 L CK-MB (CK-2) 0.57 Troponin I < 0.012 Impressions: Ankle X-Ray 04/17/16 00:00 IMPRESSION: NO ACUTE OSSEOUS ABNORMALITY IDENTIFIED. CHRONIC CHANGES ABOVE INCLUDING UNDULATION INVOLVING THE POSTEROLATERAL CORTEX OF VISUALIZED FIBULAR DIAPHYSIS COULD BE SECONDARY TO UNDERLYING METABOLIC BONE DISORDER. CORRELATE WITH CLINICAL HISTORY. Hip X-Ray 04/17/16 14:22 IMPRESSION: Acute spiral fracture left proximal femoral diaphysis with varus angulation and foreshortening Lower Extremity CT 04/17/16 16:08 IMPRESSION: STABLE APPEARANCE OF LEFT SUBTROCHANTERIC FEMUR FRACTURE WITHOUT DEFINITE PATHOLOGIC LESION IDENTIFIED. ADDITIONAL NOTE IS MADE OF DIFFUSE MUSCULAR ATROPHY SUGGESTIVE OF UNDERLYING CHRONIC MEDICAL CONDITION. CORRELATE WITH PATIENT'S CLINICAL HISTORY. Femur X-Ray 04/18/16 00:00 IMPRESSION: IMAGE(S) OBTAINED DURING PROCEDURE. Fluoroscopy 04/18/16 00:00 IMPRESSION: Please see combined report for performance of procedure and radiologic supervision and interpretation. Assessment & Plan - Diagnosis (1) Closed left subtrochanteric femur fracture Qualifiers: Encounter type: subsequent encounter Fracture healing: with routine healing Qualified Code(s): S72.22XD - Displaced subtrochanteric fracture of left femur, subsequent encounter for closed fracture with routine healing Is this a current diagnosis for this admission?: YesPlan: Postop day 1 status post intramedullary nail proximal femur fracture #1 pain control #2 physical therapy weightbearing as tolerated #3 Xarelto for DVT prophylaxis #4 discharge planning patient will likely require [facility] facility. I have discussed the case with the hospitalist although his diabetes is on controlled Dr. Mathew is being cautious to not overcorrect which may cause symptoms. Thus from his standpoint patient is stable for discharge when bed available. (2) Hip subtrochanteric fracture Qualifiers: Encounter type: initial encounter Fracture type: closed Fracture alignment: displaced Laterality: left Qualified Code(s): S72.22XA - Displaced subtrochanteric fracture of left femur, initial encounter for closed fracture Is this a current diagnosis for this admission?: Yes
[2016-04-19] MEDS: RIVAROXABAN 10 MG TABLET PO SCH (22:53)
[2016-04-19] MEDS: ZOLPIDEM TARTRATE 5 MG TABLET PO SCH (22:53)
[2016-04-20 05:03] LABS: HEMATOCRIT 34.1 % (37.9-51.0); HEMOGLOBIN 10.9 g/dL (13.5-17.0); HGB HCT DIFFERENCE -1.4; MEAN CORPUSCULAR HEMOGLOBIN 25.9 pg (27.0-33.4); MEAN CORPUSCULAR HGB CONC 31.8 g/dL (32.0-36.0); MEAN CORPUSCULAR VOLUME 82 fl (80-97); RED BLOOD COUNT 4.19 10^6/uL (4.35-5.55); RED CELL DISTRIBUTION WIDTH 13.7 % (11.5-14.0); WHITE BLOOD COUNT 11.4 10^3/uL (4.0-10.5)
[2016-04-20] MEDS: LANSOPRAZOLE 30 MG TAB.RAP.DR PO SCH (06:45)
[2016-04-20] MEDS: OXYCODONE-ACETAMINOPHEN 5-325 MG TABLET PO PRN ×2 (06:50→17:55)
--- NOTE | 2016-04-20 07:50 | PDOC PROGRESS REPORT ---
Subjective Progress Note for:: 04/20/16 Subjective:: Patient seen this morning. Is complaining of pain which is improved with pain medication. Was able to undergo physical therapy yesterday and has been attempting to do home exercises in the room. Denies chest pain or shortness of breath. Physical Exam Vital Signs: Temp Pulse Resp BP Pulse Ox 97.6 F 101 H 16 120/70 97 04/19/16 23:24 04/19/16 23:24 04/19/16 23:24 04/19/16 23:24 04/20/16 07:48 Pulse Oximeter Continuous Start: 04/18/16 13: 34 Freq: RTQ4 Status: Active Document 04/20/16 07:48 SFL (Rec: 04/20/16 07:49 SFL [email or web address]) Pulse Oximetry Assessment Oxygen Saturation (92-100) 97 Oxygen Delivery Method Room Air Equipment Usage Equipment in Use Continuous SpO2 Machine # 7 Intake & Output 04/19/16 04/20/16 04/21/16 06:59 06:59 06:59 Intake Total 3850 2860 Output Total 1325 450 Balance 2525 2410 Musculoskeletal exam: PRESENT: other - Left lower extremity: Incisions clean/dry /intact no erythema or drainage. Intact plantar flexion/dorsiflexion. No calf tenderness. Mildmoderate thigh swelling compartments soft and compressible no sign of compartment syndrome Results Laboratory Results: 04/20/16 04:51 04/19/16 04:02 04/20/16 04:51 WBC 11.4 H RBC 4.19 L Hgb 10.9 L Hct 34.1 L MCV 82 MCH 25.9 L MCHC 31.8 L RDW 13.7 Plt Count 174 04/18/16 04/18/16 18:19 18:19 Creatine Kinase 45 L CK-MB (CK-2) 0.57 Troponin I < 0.012 Impressions: Ankle X-Ray 04/17/16 00:00 IMPRESSION: NO ACUTE OSSEOUS ABNORMALITY IDENTIFIED. CHRONIC CHANGES ABOVE INCLUDING UNDULATION INVOLVING THE POSTEROLATERAL CORTEX OF VISUALIZED FIBULAR DIAPHYSIS COULD BE SECONDARY TO UNDERLYING METABOLIC BONE DISORDER. CORRELATE WITH CLINICAL HISTORY. Hip X-Ray 04/17/16 14:22 IMPRESSION: Acute spiral fracture left proximal femoral diaphysis with varus angulation and foreshortening Lower Extremity CT 04/17/16 16:08 IMPRESSION: STABLE APPEARANCE OF LEFT SUBTROCHANTERIC FEMUR FRACTURE WITHOUT DEFINITE PATHOLOGIC LESION IDENTIFIED. ADDITIONAL NOTE IS MADE OF DIFFUSE MUSCULAR ATROPHY SUGGESTIVE OF UNDERLYING CHRONIC MEDICAL CONDITION. CORRELATE WITH PATIENT'S CLINICAL HISTORY. Femur X-Ray 04/18/16 00:00 IMPRESSION: IMAGE(S) OBTAINED DURING PROCEDURE. Fluoroscopy 04/18/16 00:00 IMPRESSION: Please see combined report for performance of procedure and radiologic supervision and interpretation. Assessment & Plan - Diagnosis (1) Closed left subtrochanteric femur fracture Qualifiers: Encounter type: subsequent encounter Fracture healing: with routine healing Qualified Code(s): S72.22XD - Displaced subtrochanteric fracture of left femur, subsequent encounter for closed fracture with routine healing Is this a current diagnosis for this admission?: YesPlan: Status post IM nail left proximal femur fracture #1 pain control with oxycodone #2 physical therapy weightbearing as tolerated #3 Xarelto for DVT prophylaxis #4 poorly controlled diabetes mellitus appreciated hospitalist recommendations #5 discharge planning patient will likely require half-way facility given his history of muscular dystrophy patient orthopedic stable for discharge once bed available (2) Hip subtrochanteric fracture Qualifiers: Encounter type: initial encounter Fracture type: closed Fracture alignment: displaced Laterality: left Qualified Code(s): S72.22XA - Displaced subtrochanteric fracture of left femur, initial encounter for closed fracture Is this a current diagnosis for this admission?: Yes
[2016-04-20] MEDS: PREGABALIN 75 MG CAPSULE PO SCH ×2 (09:37→22:55)
[2016-04-20] MEDS: DOCUSATE SODIUM 100 MG CAPSULE PO SCH (09:37)
[2016-04-20] MEDS: CELECOXIB 200 MG CAPSULE PO SCH ×2 (09:37→17:53)
[2016-04-20] MEDS: METOPROLOL TARTRATE 25 MG TABLET PO SCH ×2 (09:37→22:55)
[2016-04-20] MEDS: OXYCODONE HCL SR 10 MG TABLET PO SCH (09:38)
[2016-04-20] MEDS: MORPHINE SULFATE 10 MG/ML INJ IV PRN (09:47)
[2016-04-20] MEDS: INSULIN LISPRO 100 UNIT/ML 3 ML VIAL SUBCUT PRN ×3 (12:27→23:52)
[2016-04-20] MEDS ORDERED: INSULIN GLARGINE,HUM.REC.ANLOG 1,000 UNIT/10 ML UNIT SUBCUT ONE (14:00)
--- NOTE | 2016-04-20 14:16 | PDOC PROGRESS REPORT ---
Subjective Progress Note for:: 04/20/16 Subjective:: GAGAN MADDEN is a 35 year old male with history of type II diabetes and muscular dystrophy sustained a injury when he was attempting to transfer from a scooter at the [facility] and ultimately twisted his leg. Patient states he was unable to weight-bear has severe pain 10/10 with motion. Denies numbness or tingling. He has improved with current narcotic pain medication. With patient's history of muscular dystrophy he requires a cane and a rolling walker for ambulation. He reports that his rolling walker is no longer functional and he was denied and because his prescription is less than 1-year-old. Therefore he uses only a cane for ambulation at present. Evaluation in the emergency room showed a femur fracture, or speaks surgeon is agreed to accept the patient for admission and asked that we follow along to manage his diabetes. She reports she has not been taking his diabetic medication for about a month states his blood sugars were always elevated with reduction medication or not so he didn't see a purpose of it anymore. He reports blood sugars greater than 400 when he took the time to check them. He reports having glucometer and appropriate supplies available to him at home. He underwent successful surgical repair of his fracture, please see orthopedics up note for details. The patient complains of transient numbness in his left arm immediately post procedure. This was described as heaviness in his arm and some clumsiness it was localized to the entire arm yesterday but by this morning now focuses on the first through third digits of his hand and the lateral aspect of his forearm only. I suspect this has something to do with positioning during the procedure as it is already resolving without further intervention. He did undergo an EKG and cardiac enzymes to make sure this was not a cardiac equivalent both of which were negative. Physical Exam Vital Signs: Temp Pulse Resp BP Pulse Ox 97.8 F 105 H 20 131/73 H 97 04/20/16 08:38 04/20/16 08:38 04/20/16 08:38 04/20/16 08:38 04/20/16 07:48 Pulse Oximeter Continuous Start: 04/18/16 13: 34 Freq: RTQ4 Status: Active Document 04/20/16 07:48 SFL (Rec: 04/20/16 07:49 SFL [email or web address]) Pulse Oximetry Assessment Oxygen Saturation (92-100) 97 Oxygen Delivery Method Room Air Equipment Usage Equipment in Use Continuous SpO2 Machine # 7 Intake & Output 04/19/16 04/20/16 04/21/16 06:59 06:59 06:59 Intake Total 3850 2860 Output Total 1325 450 Balance 2525 2410 General appearance: PRESENT: no acute distress, well-nourished Head exam: PRESENT: atraumatic, normocephalic Eye exam: PRESENT: conjunctiva pink, EOMI, PERRLA. ABSENT: scleral icterus Mouth exam: PRESENT: moist, tongue midline Neck exam: ABSENT: carotid bruit, JVD, lymphadenopathy, thyromegaly Respiratory exam: PRESENT: clear to auscultation brenda. ABSENT: rales, rhonchi, wheezes Cardiovascular exam: PRESENT: RRR. ABSENT: diastolic murmur, rubs, systolic murmur Pulses: PRESENT: normal dorsalis pedis pul Vascular exam: PRESENT: normal capillary refill GI/Abdominal exam: PRESENT: normal bowel sounds, soft. ABSENT: distended, guarding, mass, organolmegaly, rebound, tenderness Rectal exam: PRESENT: deferred Extremities exam: PRESENT: full ROM, other - 2 surgical wounds clean dry and intact, good sensation, good capillary refill. ABSENT: calf tenderness, clubbing, pedal edema Musculoskeletal exam: PRESENT: other - Diffuse muscle atrophy as previously noted. ABSENT: tenderness Neurological exam: PRESENT: alert, awake, oriented to person, oriented to place , oriented to time, oriented to situation Psychiatric exam: PRESENT: appropriate affect, normal mood. ABSENT: homicidal ideation, suicidal ideation Skin exam: PRESENT: dry, intact, warm. ABSENT: cyanosis, rash Results Laboratory Results: 04/20/16 04:51 04/19/16 04:02 04/20/16 04:51 WBC 11.4 H RBC 4.19 L Hgb 10.9 L Hct 34.1 L MCV 82 MCH 25.9 L MCHC 31.8 L RDW 13.7 Plt Count 174 04/18/16 04/18/16 18:19 18:19 Creatine Kinase 45 L CK-MB (CK-2) 0.57 Troponin I < 0.012 Impressions: Ankle X-Ray 04/17/16 00:00 IMPRESSION: NO ACUTE OSSEOUS ABNORMALITY IDENTIFIED. CHRONIC CHANGES ABOVE INCLUDING UNDULATION INVOLVING THE POSTEROLATERAL CORTEX OF VISUALIZED FIBULAR DIAPHYSIS COULD BE SECONDARY TO UNDERLYING METABOLIC BONE DISORDER. CORRELATE WITH CLINICAL HISTORY. Hip X-Ray 04/17/16 14:22 IMPRESSION: Acute spiral fracture left proximal femoral diaphysis with varus angulation and foreshortening Lower Extremity CT 04/17/16 16:08 IMPRESSION: STABLE APPEARANCE OF LEFT SUBTROCHANTERIC FEMUR FRACTURE WITHOUT DEFINITE PATHOLOGIC LESION IDENTIFIED. ADDITIONAL NOTE IS MADE OF DIFFUSE MUSCULAR ATROPHY SUGGESTIVE OF UNDERLYING CHRONIC MEDICAL CONDITION. CORRELATE WITH PATIENT'S CLINICAL HISTORY. Femur X-Ray 04/18/16 00:00 IMPRESSION: IMAGE(S) OBTAINED DURING PROCEDURE. Fluoroscopy 04/18/16 00:00 IMPRESSION: Please see combined report for performance of procedure and radiologic supervision and interpretation. Assessment & Plan - Diagnosis (1) Closed left subtrochanteric femur fracture Qualifiers: Encounter type: subsequent encounter Fracture healing: with routine healing Qualified Code(s): S72.22XD - Displaced subtrochanteric fracture of left femur, subsequent encounter for closed fracture with routine healing Is this a current diagnosis for this admission?: YesPlan: Per orthopedic surgeon. Will likely need placement for rehabilitation. 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 Patient freely admits to medical noncompliance. Continue to cover with sliding scale and we will address his oral regimen at discharge. He is not interested in starting insulin at this time but it is unlikely he will get to goal hemoglobin A1c of less than 7 on oral regimen only. (3) Muscular dystrophy Is this a current diagnosis for this admission?: YesPlan: At baseline. Follows with Dr. Reveles as needed. (4) Paresthesia of left arm Is this a current diagnosis for this admission?: YesPlan: Resolve. likely positional after surgery. Continue to monitor. - Time Time Spent with patient: 35 or more minutes Anticipated discharge: Acute Rehab Within: within 24 hours - Patient is stable for discharge at this time.
[2016-04-20] MEDS: RIVAROXABAN 10 MG TABLET PO SCH (22:56)
[2016-04-20] MEDS: ZOLPIDEM TARTRATE 5 MG TABLET PO SCH (22:56)
[2016-04-21 05:12] LABS: HEMATOCRIT 33.9 % (37.9-51.0); HEMOGLOBIN 10.7 g/dL (13.5-17.0); HGB HCT DIFFERENCE -1.8; MEAN CORPUSCULAR HEMOGLOBIN 25.9 pg (27.0-33.4); MEAN CORPUSCULAR HGB CONC 31.5 g/dL (32.0-36.0); MEAN CORPUSCULAR VOLUME 82 fl (80-97); RED BLOOD COUNT 4.13 10^6/uL (4.35-5.55); RED CELL DISTRIBUTION WIDTH 14.1 % (11.5-14.0); WHITE BLOOD COUNT 11.3 10^3/uL (4.0-10.5)
[2016-04-21] MEDS: LANSOPRAZOLE 30 MG TAB.RAP.DR PO SCH (06:48)
[2016-04-21] MEDS ORDERED: INSULIN GLARGINE,HUM.REC.ANLOG 1,000 UNIT/10 ML UNIT SUBCUT SCH ×2 (08:00)
[2016-04-21] MEDS: OXYCODONE-ACETAMINOPHEN 5-325 MG TABLET PO PRN ×2 (08:40→20:59)
[2016-04-21] MEDS ORDERED: MAGNESIUM HYDROXIDE SUSP 30 ML UDCUP PO PRN (09:15)
[2016-04-21] MEDS ORDERED: MAG HYDROX/AL HYDROX/SIMETH SUSP 30 ML UDCUP PO PRN (09:15)
--- NOTE | 2016-04-21 09:19 | PDOC PROGRESS REPORT ---
Subjective Progress Note for:: 04/21/16 Subjective:: Patient seen and evaluated this morning. Still having difficulty with physical therapy and performing activities of daily living. Denies bowel movement as of yet. Denies chest pain or shortness of breath. Physical Exam Vital Signs: Temp Pulse Resp BP Pulse Ox 97.7 F 96 16 134/65 H 98 04/20/16 16:08 04/20/16 16:08 04/20/16 16:08 04/20/16 16:08 04/21/16 08:44 Pulse Oximeter Continuous Start: 04/18/16 13: 34 Freq: RTQ4 Status: Active Document 04/21/16 08:44 NSC (Rec: 04/21/16 08:50 [email or web address] [email or web address]) Pulse Oximetry Assessment Oxygen Saturation (92-100) 98 Oxygen Delivery Method Room Air Fraction of Inspired Oxygen (FIO2) 21 Equipment Usage Equipment Discontinued Continuous SpO2 Machine # N-7 Additional RT Notes Other CAN OPERATOR Student S Lama spo2 dc per 18hr order Intake & Output 04/20/16 04/21/16 04/22/16 06:59 06:59 06:59 Intake Total 2860 1298 Output Total 450 700 Balance 2410 598 Musculoskeletal exam: PRESENT: other - Left lower extremity: Dressing clean/dry/ intact no erythema or drainage. Moderate thigh swelling compartment soft and compressible no sign of compartment syndrome. No calf tenderness. No limb length inequality or malrotation. Intact plantar flexion/ dorsiflexion. Results Laboratory Results: 04/21/16 04:42 04/19/16 04:02 04/21/16 04:42 WBC 11.3 H RBC 4.13 L Hgb 10.7 L Hct 33.9 L MCV 82 MCH 25.9 L MCHC 31.5 L RDW 14.1 H Plt Count 191 04/18/16 04/18/16 18:19 18:19 Creatine Kinase 45 L CK-MB (CK-2) 0.57 Troponin I < 0.012 Impressions: Ankle X-Ray 04/17/16 00:00 IMPRESSION: NO ACUTE OSSEOUS ABNORMALITY IDENTIFIED. CHRONIC CHANGES ABOVE INCLUDING UNDULATION INVOLVING THE POSTEROLATERAL CORTEX OF VISUALIZED FIBULAR DIAPHYSIS COULD BE SECONDARY TO UNDERLYING METABOLIC BONE DISORDER. CORRELATE WITH CLINICAL HISTORY. Hip X-Ray 04/17/16 14:22 IMPRESSION: Acute spiral fracture left proximal femoral diaphysis with varus angulation and foreshortening Lower Extremity CT 04/17/16 16:08 IMPRESSION: STABLE APPEARANCE OF LEFT SUBTROCHANTERIC FEMUR FRACTURE WITHOUT DEFINITE PATHOLOGIC LESION IDENTIFIED. ADDITIONAL NOTE IS MADE OF DIFFUSE MUSCULAR ATROPHY SUGGESTIVE OF UNDERLYING CHRONIC MEDICAL CONDITION. CORRELATE WITH PATIENT'S CLINICAL HISTORY. Femur X-Ray 04/18/16 00:00 IMPRESSION: IMAGE(S) OBTAINED DURING PROCEDURE. Fluoroscopy 04/18/16 00:00 IMPRESSION: Please see combined report for performance of procedure and radiologic supervision and interpretation. Assessment & Plan - Diagnosis (1) Closed left subtrochanteric femur fracture Qualifiers: Encounter type: subsequent encounter Fracture healing: with routine healing Qualified Code(s): S72.22XD - Displaced subtrochanteric fracture of left femur, subsequent encounter for closed fracture with routine healing Is this a current diagnosis for this admission?: YesPlan: Status post IM nail left proximal femur fracture #1 pain control #2 Xarelto for DVT prophylaxis #3 physical therapy weightbearing as tolerated #4 uncontrolled diabetes as per hospitalist recommendations appreciate input. #5 Colace when necessary for constipation #6 discharge planning patient will require residential facility when bed available is currently medically and orthopedically stable for discharge. (2) Hip subtrochanteric fracture Qualifiers: Encounter type: initial encounter Fracture type: closed Fracture alignment: displaced Laterality: left Qualified Code(s): S72.22XA - Displaced subtrochanteric fracture of left femur, initial encounter for closed fracture Is this a current diagnosis for this admission?: Yes - Time Anticipated discharge: SNF Within: within 24 hours
[2016-04-21] MEDS: CELECOXIB 200 MG CAPSULE PO SCH ×2 (10:05→17:25)
[2016-04-21] MEDS: DOCUSATE SODIUM 100 MG CAPSULE PO SCH ×2 (10:05)
[2016-04-21] MEDS: MORPHINE SULFATE 10 MG/ML INJ IV PRN (10:06)
[2016-04-21] MEDS: METOPROLOL TARTRATE 25 MG TABLET PO SCH ×2 (10:06→22:28)
[2016-04-21] MEDS: PREGABALIN 75 MG CAPSULE PO SCH ×2 (10:06→22:27)
--- NOTE | 2016-04-21 14:24 | PDOC PROGRESS REPORT ---
Subjective Progress Note for:: 04/21/16 Subjective:: Patient has no complaints he has minimal pain no fever no chills His blood sugars are still elevated in the 200 range Physical Exam Vital Signs: Temp Pulse Resp BP Pulse Ox 97.7 F 96 16 134/65 H 98 04/20/16 16:08 04/20/16 16:08 04/20/16 16:08 04/20/16 16:08 04/21/16 08:44 Pulse Oximeter Continuous Start: 04/18/16 13: 34 Freq: RTQ4 Status: Complete Document 04/21/16 08:44 [facility] [place]Rec: 04/21/16 08:50 [facility] [email or web address]) Pulse Oximetry Assessment Oxygen Saturation (92-100) 98 Oxygen Delivery Method Room Air Fraction of Inspired Oxygen (FIO2) 21 Equipment Usage Equipment Discontinued Continuous SpO2 Machine # N-7 Additional RT Notes 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 ABSENT: scleral icterus Ear exam: PRESENT: normal external ear exam Mouth exam: PRESENT: moist, tongue midline Neck exam: ABSENT: carotid bruit, JVD, lymphadenopathy, thyromegaly Respiratory exam: PRESENT: clear to auscultation brenda. ABSENT: rales, rhonchi, wheezes Cardiovascular exam: PRESENT: RRR. ABSENT: diastolic murmur, rubs, systolic murmur Pulses: PRESENT: normal dorsalis pedis pul Vascular exam: PRESENT: normal capillary refill GI/Abdominal exam: PRESENT: normal bowel sounds, soft. ABSENT: distended, guarding, mass, organolmegaly, rebound, tenderness Rectal exam: PRESENT: deferred Extremities exam: PRESENT: full ROM. ABSENT: calf tenderness, clubbing, pedal edema Musculoskeletal exam: PRESENT: other - Diffuse muscle atrophy Neurological exam: PRESENT: alert, awake, oriented to person, oriented to place , oriented to time, oriented to situation, CN II-XII grossly intact. ABSENT: motor sensory deficit Psychiatric exam: PRESENT: appropriate affect, normal mood. ABSENT: homicidal ideation, suicidal ideation Skin exam: PRESENT: dry, intact, warm. ABSENT: cyanosis, rash Results Laboratory Results: 04/21/16 04:42 04/19/16 04:02 04/21/16 04:42 WBC 11.3 H RBC 4.13 L Hgb 10.7 L Hct 33.9 L MCV 82 MCH 25.9 L MCHC 31.5 L RDW 14.1 H Plt Count 191 04/18/16 04/18/16 18:19 18:19 Creatine Kinase 45 L CK-MB (CK-2) 0.57 Troponin I < 0.012 Impressions: Ankle X-Ray 04/17/16 00:00 IMPRESSION: NO ACUTE OSSEOUS ABNORMALITY IDENTIFIED. CHRONIC CHANGES ABOVE INCLUDING UNDULATION INVOLVING THE POSTEROLATERAL CORTEX OF VISUALIZED FIBULAR DIAPHYSIS COULD BE SECONDARY TO UNDERLYING METABOLIC BONE DISORDER. CORRELATE WITH CLINICAL HISTORY. Hip X-Ray 04/17/16 14:22 IMPRESSION: Acute spiral fracture left proximal femoral diaphysis with varus angulation and foreshortening Lower Extremity CT 04/17/16 16:08 IMPRESSION: STABLE APPEARANCE OF LEFT SUBTROCHANTERIC FEMUR FRACTURE WITHOUT DEFINITE PATHOLOGIC LESION IDENTIFIED. ADDITIONAL NOTE IS MADE OF DIFFUSE MUSCULAR ATROPHY SUGGESTIVE OF UNDERLYING CHRONIC MEDICAL CONDITION. CORRELATE WITH PATIENT'S CLINICAL HISTORY. Femur X-Ray 04/18/16 00:00 IMPRESSION: IMAGE(S) OBTAINED DURING PROCEDURE. Fluoroscopy 04/18/16 00:00 IMPRESSION: Please see combined report for performance of procedure and radiologic supervision and interpretation. Assessment & Plan - Diagnosis (1) Closed left subtrochanteric femur fracture Qualifiers: Encounter type: subsequent encounter Fracture healing: with routine healing Qualified Code(s): S72.22XD - Displaced subtrochanteric fracture of left femur, subsequent encounter for closed fracture with routine healing Is this a current diagnosis for this admission?: YesPlan: Patient had an uncomplicated postop course Management as per orthopedics Transferred to short-term rehabilitation when a bed is available Continue DVT prophylaxis (2) Diabetes mellitus Qualifiers: Diabetes mellitus type: type 2 Diabetes mellitus complication status: with hyperglycemia Diabetes mellitus shelter insulin use: without shelter use Qualified Code(s): E11.65 - Type 2 diabetes mellitus with hyperglycemia; Z79.4 - care home (current) use of insulin Is this a current diagnosis for this admission?: YesPlan: Patient's hemoglobin A1c was 11 But patient had not been taking any medication at all and was not following a diabetic diet We would be inclined to restart by mouth management metformin and glipizide Continue diabetic diet and lispro coverage Patient to be reevaluated in 3 months for insulin therapy If hemoglobin A1c is still 11 patient should also be treated with Lantus (3) Muscular dystrophy Is this a current diagnosis for this admission?: Yes - Time Time Spent with patient: Discharge in the mid in a.m. to short-term rehabilitation if bed is available Time Spent with patient: 25-34 minutes
[2016-04-21] MEDS: METFORMIN HCL 500 MG TABLET PO SCH (15:47)
[2016-04-21] MEDS: GLIPIZIDE 5 MG TABLET PO SCH (15:47)
[2016-04-21] MEDS: INSULIN LISPRO 100 UNIT/ML 3 ML VIAL SUBCUT PRN (16:22)
[2016-04-21] MEDS: RIVAROXABAN 10 MG TABLET PO SCH (22:29)
[2016-04-21] MEDS: ZOLPIDEM TARTRATE 5 MG TABLET PO SCH (22:30)
[2016-04-22] MEDS: LANSOPRAZOLE 30 MG TAB.RAP.DR PO SCH (06:52)
[2016-04-22] MEDS: DOCUSATE SODIUM 100 MG CAPSULE PO SCH ×2 (09:33)
[2016-04-22] MEDS: GLIPIZIDE 5 MG TABLET PO SCH ×2 (09:33→15:20)
[2016-04-22] MEDS: CELECOXIB 200 MG CAPSULE PO SCH ×2 (09:33→17:32)
[2016-04-22] MEDS: METFORMIN HCL 500 MG TABLET PO SCH ×2 (09:34→15:20)
[2016-04-22] MEDS: METOPROLOL TARTRATE 25 MG TABLET PO SCH (09:34)
[2016-04-22] MEDS: PREGABALIN 75 MG CAPSULE PO SCH ×2 (09:34→21:55)
[2016-04-22] MEDS: MORPHINE SULFATE 10 MG/ML INJ IV PRN (10:35)
[2016-04-22] MEDS: OXYCODONE-ACETAMINOPHEN 5-325 MG TABLET PO PRN (11:38)
--- NOTE | 2016-04-22 16:03 | PDOC PROGRESS REPORT ---
Subjective Progress Note for:: 04/22/16 Subjective:: Patient has minimal complaints ,no fever no chills ,minimal pain . He is awaiting transfer to short-term rehabilitation Physical Exam Vital Signs: Temp Pulse Resp BP Pulse Ox 98.3 F 80 18 112/67 98 04/22/16 11:49 04/22/16 11:49 04/22/16 11:49 04/22/16 11:49 04/22/16 11:49 Pulse Oximeter Continuous Start: 04/18/16 13: 34 Freq: RTQ4 Status: Complete Document 04/21/16 08:44 [facility] [place] (Rec: 04/21/16 08:50 [facility] [place] [email or web address]) Pulse Oximetry Assessment Oxygen Saturation (92-100) 98 Oxygen Delivery Method Room Air Fraction of Inspired Oxygen (FIO2) 21 Equipment Usage Equipment Discontinued Continuous SpO2 Machine # N-7 Additional RT Notes 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 ABSENT: scleral icterus Ear exam: PRESENT: normal external ear exam Mouth exam: PRESENT: moist, tongue midline Neck exam: ABSENT: carotid bruit, JVD, lymphadenopathy, thyromegaly Respiratory exam: PRESENT: clear to auscultation brenda. ABSENT: rales, rhonchi, wheezes Cardiovascular exam: PRESENT: RRR. ABSENT: diastolic murmur, rubs, systolic murmur Pulses: PRESENT: normal dorsalis pedis pul Vascular exam: PRESENT: normal capillary refill GI/Abdominal exam: PRESENT: normal bowel sounds, soft. ABSENT: distended, guarding, mass, organolmegaly, rebound, tenderness Rectal exam: PRESENT: deferred Extremities exam: PRESENT: full ROM. ABSENT: calf tenderness, clubbing, pedal edema Neurological exam: PRESENT: alert, awake, oriented to person, oriented to place , oriented to time, oriented to situation, CN II-XII grossly intact. ABSENT: motor sensory deficit Psychiatric exam: PRESENT: appropriate affect, normal mood. ABSENT: homicidal ideation, suicidal ideation Skin exam: PRESENT: dry, intact, warm. ABSENT: cyanosis, rash Results Laboratory Results: 04/21/16 04:42 04/19/16 04:02 04/18/16 04/18/16 18:19 18:19 Creatine Kinase 45 L CK-MB (CK-2) 0.57 Troponin I < 0.012 04/21/16 04/21/16 04/21/16 06:47 15:51 21:01 POC Glucose 205 H 294 H 140 H 04/22/16 04/22/16 06:54 11:33 POC Glucose 162 H 210 H Impressions: Ankle X-Ray 04/17/16 00:00 IMPRESSION: NO ACUTE OSSEOUS ABNORMALITY IDENTIFIED. CHRONIC CHANGES ABOVE INCLUDING UNDULATION INVOLVING THE POSTEROLATERAL CORTEX OF VISUALIZED FIBULAR DIAPHYSIS COULD BE SECONDARY TO UNDERLYING METABOLIC BONE DISORDER. CORRELATE WITH CLINICAL HISTORY. Hip X-Ray 04/17/16 14:22 IMPRESSION: Acute spiral fracture left proximal femoral diaphysis with varus angulation and foreshortening Lower Extremity CT 04/17/16 16:08 IMPRESSION: STABLE APPEARANCE OF LEFT SUBTROCHANTERIC FEMUR FRACTURE WITHOUT DEFINITE PATHOLOGIC LESION IDENTIFIED. ADDITIONAL NOTE IS MADE OF DIFFUSE MUSCULAR ATROPHY SUGGESTIVE OF UNDERLYING CHRONIC MEDICAL CONDITION. CORRELATE WITH PATIENT'S CLINICAL HISTORY. Femur X-Ray 04/18/16 00:00 IMPRESSION: IMAGE(S) OBTAINED DURING PROCEDURE. Fluoroscopy 04/18/16 00:00 IMPRESSION: Please see combined report for performance of procedure and radiologic supervision and interpretation. Assessment & Plan - Diagnosis (1) Closed left subtrochanteric femur fracture Qualifiers: Encounter type: subsequent encounter Fracture healing: with routine healing Qualified Code(s): S72.22XD - Displaced subtrochanteric fracture of left femur, subsequent encounter for closed fracture with routine healing Is this a current diagnosis for this admission?: YesPlan: Management as per orthopedics (2) Diabetes mellitus Qualifiers: Diabetes mellitus type: type 2 Diabetes mellitus complication status: with hyperglycemia Diabetes mellitus retirement insulin use: without terminal computer operator use Qualified Code(s): E11.65 - Type 2 diabetes mellitus with hyperglycemia; Z79.4 - terminal computer operator (current) use of insulin Is this a current diagnosis for this admission?: YesPlan: Patient was started on metformin and glipizide Patient is having ongoing diabetic teaching We do believe that if the patient a loses some weight; follows a diet; he may be managed adequately on by mouth meds Would advise patient to be on metformin and glipizide in the next 3 month and have repeat hemoglobin A1c performed (3) Muscular dystrophy Is this a current diagnosis for this admission?: Yes - Time Time Spent with patient: Medicine will sign off at this time We will be happy to reconsult if needed Time Spent with patient: 25-34 minutes
[2016-04-22] MEDS: RIVAROXABAN 10 MG TABLET PO SCH (21:55)
[2016-04-22] MEDS: ZOLPIDEM TARTRATE 5 MG TABLET PO SCH (21:55)
[2016-04-23] MEDS: METOPROLOL TARTRATE 25 MG TABLET PO SCH ×2 (00:23→10:33)
[2016-04-23] MEDS: LANSOPRAZOLE 30 MG TAB.RAP.DR PO SCH (06:23)
[2016-04-23] MEDS: METFORMIN HCL 500 MG TABLET PO SCH ×2 (08:48→16:02)
[2016-04-23] MEDS: GLIPIZIDE 5 MG TABLET PO SCH ×2 (08:48→16:02)
[2016-04-23] MEDS: PREGABALIN 75 MG CAPSULE PO SCH (10:32)
[2016-04-23] MEDS: DOCUSATE SODIUM 100 MG CAPSULE PO SCH (10:33)
[2016-04-23] MEDS: CELECOXIB 200 MG CAPSULE PO SCH ×2 (10:33→17:13)
[2016-04-23] MEDS: MORPHINE SULFATE 10 MG/ML INJ IV PRN (10:53)
[2016-04-23] MEDS: OXYCODONE-ACETAMINOPHEN 5-325 MG TABLET PO PRN (12:10)
--- NOTE | 2016-04-23 13:36 | PDOC TRANSFER SUMMARY ---
General - Admit/Disc Date/PCP Admission Date/Primary Care Provider: 04/17/16 18:24 Discharge Date: 04/23/16 - Discharge Diagnosis (1) Closed left subtrochanteric femur fracture Is this a current diagnosis for this admission?: Yes (2) Hip subtrochanteric fracture Is this a current diagnosis for this admission?: Yes - Additional Information Resuscitation Status: Full Code Discharge Activity: No Driving, No Lifting Over 10 Pounds, No Lifting/Push/ Pulling Home Medications: Cyclobenzaprine HCl [Flexeril 5 mg Tablet] 5 mg PO DAILY 04/17/16 Oxycodone HCl/Acetaminophen [Percocet 5-325 mg Tablet] 1 - 2 tab PO Q4HP PRN # 50 tablet 04/20/16 Rivaroxaban [Xarelto 10 mg Tablet] 10 mg PO QHS #21 tablet 04/20/16 Glipizide 5 mg PO BID #60 tablet 04/22/16 Metformin HCl 1,000 mg PO BID #60 04/22/16 History of Present Illness Admission Date/PCP: 04/17/16 18:24 Patient complains of: Left Hip Pain History of Present Illness: GAGAN MADDEN is a 35 year old male with history of type II diabetes and muscular dystrophy sustained a injury when he was attempting to transfer from a scooter at the [facility] and ultimately twisted his leg. Patient states he was unable to weight-bear has severe pain 10/10 with motion. Denies numbness or tingling. He has improved with current narcotic pain medication. With patient's history of muscular dystrophy he requires a cane and a rolling walker for ambulation. He reports that his rolling walker is no longer functional and he was denied and because his prescription is less than 1-year-old. Therefore he uses only a cane for ambulation at present. Hospital Course Hospital Course: 35-year-old male with history of muscular dystrophy sustained proximal femur fracture. He was admitted under the orthopedic service on 04/17/16. Preoperatively patient was seen and evaluated by the hospitalist who medically cleared the patient for operative intervention. On 04/21/2016 patient underwent successful intramedullary nail left proximal femur fracture. Patient began physical therapy on postop day #1 but given his history of muscular dystrophy and the severity of the fracture he requires moderate to maximal assistance for activities of daily living and ambulation. Hospitalist has followed the patient was hospital course for his medical issues including his poorly controlled diabetes lateral does demonstrate a hemoglobin A1c of 11.2. Patient has continued physical therapy throughout his hospital course and has slowly progressed. But given his multiple medical comorbidities and the severity of the fracture and decided patient will require long term facility for further rehabilitation. During his hospital course patient received Xarelto for DVT prophylaxis. On 04/23/16 patient was orthopedically and medically stable for discharge to long term facility. Physical Exam Vital Signs: Temp Pulse Resp BP Pulse Ox 97.7 F 96 16 134/65 H 98 04/20/16 16:08 04/20/16 16:08 04/20/16 16:08 04/20/16 16:08 04/21/16 08:44 Pulse Oximeter Continuous Start: 04/18/16 13: 34 Freq: RTQ4 Status: Active Document 04/21/16 08:44 NSC (Rec: 04/21/16 08:50 [email or web address] [email or web address]) Pulse Oximetry Assessment Oxygen Saturation (92-100) 98 Oxygen Delivery Method Room Air Fraction of Inspired Oxygen (FIO2) 21 Equipment Usage Equipment Discontinued Continuous SpO2 Machine # [id number] Additional RT Notes Other RESOURCE SPECIALIST Student S Lama spo2 dc per 18hr order Intake & Output 04/20/16 04/21/16 04/22/16 06:59 06:59 06:59 Intake Total 2860 1298 Output Total 450 700 Balance 2410 598 General appearance: PRESENT: no acute distress, cooperative Head exam: PRESENT: atraumatic, normocephalic Eye exam: PRESENT: EOMI Mouth exam: PRESENT: moist Teeth exam: PRESENT: poor dentation Respiratory exam: PRESENT: unlabored Pulses: PRESENT: +2 pedal pulses bilateral GI/Abdominal exam: PRESENT: soft Musculoskeletal exam: PRESENT: other - Left lower extremity: Dressing clean/dry/ intact no erythema or drainage. Moderate thigh swelling equivalent to nonoperative right thigh. No limb length discrepancy or malrotation. Intact plantar flexion/dorsiflexion. No calf tenderness. Results Laboratory Results: 04/21/16 04:42 04/19/16 04:02 04/21/16 04:42 WBC 11.3 H RBC 4.13 L Hgb 10.7 L Hct 33.9 L MCV 82 MCH 25.9 L MCHC 31.5 L RDW 14.1 H Plt Count 191 01/14/17 01/14/17 18:19 18:19 Creatine Kinase 45 L CK-MB (CK-2) 0.57 Troponin I < 0.012 Impressions: Ankle X-Ray 04/17/16 00:00 IMPRESSION: NO ACUTE OSSEOUS ABNORMALITY IDENTIFIED. CHRONIC CHANGES ABOVE INCLUDING UNDULATION INVOLVING THE POSTEROLATERAL CORTEX OF VISUALIZED FIBULAR DIAPHYSIS COULD BE SECONDARY TO UNDERLYING METABOLIC BONE DISORDER. CORRELATE WITH CLINICAL HISTORY. Hip X-Ray 04/17/16 14:22 IMPRESSION: Acute spiral fracture left proximal femoral diaphysis with varus angulation and foreshortening Lower Extremity CT 04/17/16 16:08 IMPRESSION: STABLE APPEARANCE OF LEFT SUBTROCHANTERIC FEMUR FRACTURE WITHOUT DEFINITE PATHOLOGIC LESION IDENTIFIED. ADDITIONAL NOTE IS MADE OF DIFFUSE MUSCULAR ATROPHY SUGGESTIVE OF UNDERLYING CHRONIC MEDICAL CONDITION. CORRELATE WITH PATIENT'S CLINICAL HISTORY. Femur X-Ray 04/18/16 00:00 IMPRESSION: IMAGE(S) OBTAINED DURING PROCEDURE. Fluoroscopy 04/18/16 00:00 IMPRESSION: Please see combined report for performance of procedure and radiologic supervision and interpretation. Transfer Plan - Disposition Transfer Plan: At this point patient has progressed requires further rehabilitation in a long term facility secondary to his medical comorbidities and the severity of his fracture. At this point patient is orthopedic stable for discharge to long term facility. Patient will continue physical therapy with weightbearing as tolerated on the left lower extremity. Patient will continue on Xarelto for DVT prophylaxis. Patient will facility will call with any questions or concerns including increased redness, swelling, drainage, temperature greater than 101.5 or other post surgical issues. Patient will follow-up with me in 10-14 days.
[2016-04-23 19:46] VITALS: BP 137/80
== END 2016-04-23 20:00 | DRG 481 ==
LOC: ER 14:01 → EH 18:24 → UNDOADMIN 18:52 → EH 18:52 → 4N 21:34
PROVIDERS: ADMIT Orthopaedic Surgery; ATTEND Orthopaedic Surgery
PROC: 3E0F73Z Introduction of Anti-inflammatory into Respiratory Tract, Via Natural or Artificial Opening (ICD-10-PCS; 2016-04-18)
PROC: 0QS706Z Reposition Left Upper Femur with Intramedullary Internal Fixation Device, Open Approach (ICD-10-PCS; principal; 2016-04-18 11:30)
DX: S72.22XA Displaced subtrochanteric fracture of left femur, initial encounter for closed fracture (principal); G71.0 Muscular dystrophy; W18.09XA Striking against other object with subsequent fall, initial encounter; Y92.481 Parking lot as the place of occurrence of the external cause; J45.909 Unspecified asthma, uncomplicated; R20.8 Other disturbances of skin sensation; E11.65 Type 2 diabetes mellitus with hyperglycemia; E66.9 Obesity, unspecified; Z87.891 Personal history of nicotine dependence; Z88.0 Allergy status to penicillin; Z79.84 Long term (current) use of oral hypoglycemic drugs; Z87.81 Personal history of (healed) traumatic fracture; Z91.018 Allergy to other foods; Z91.048 Other nonmedicinal substance allergy status; Z82.49 Family history of ischemic heart disease and other diseases of the circulatory system; Z83.3 Family history of diabetes mellitus; Z80.9 Family history of malignant neoplasm, unspecified; Z88.8 Allergy status to other drugs, medicaments and biological substances; Z91.19 Patient's noncompliance with other medical treatment and regimen; Z68.39 Body mass index [BMI] 39.0-39.9, adult
CPT/HCPCS: 01230; 36415; 80048; 80053; 81001; 82550; 82553; 82962; 83036; 83735; 84100; 84132; 84484; 85025; 85027; 85610; 85652; 93005; 93010; 94762; 94799; 96361; 96374; 99285; J0131; J0690; J1170; J1815; J1885; J2250; J2270; J2405; J2704; J3010; J3490; J7030; J7120

== ENCOUNTER 2016-08-27 19:02 | Emergency (ER) | payer MEDICAID ==
--- NOTE | 2016-08-27 21:37 | ER Document Report ---
ED General - General Chief Complaint: Toe Injury Stated Complaint: TOE PAIN/POSSIBLY RELATED TO DIABETES Time Seen by Provider: 08/27/16 21:26 Notes: Patient is a 36-year-old male with past history of diabetes who presents with a concern about a blue bruise on his left great toe. States that he is uncertain of how this subungual hematoma came to the past and is concerned that it is a risk for infection so he wanted to be evaluated. He denies any concerns for an active infection at this time. Denies any significant pain. He has not seen his primary care doctor regarding today's concerns. Denies a history of similar episodes in the past. TRAVEL OUTSIDE OF THE [place] IN LAST 30 DAYS: No - Related Data Allergies/Adverse Reactions: Penicillins Allergy (Verified 12/10/14 19:34) Past Medical History - General Information source: Patient - Social History Smoking Status: Never Smoker Frequency of alcohol use: None Drug Abuse: None Lives with: Spouse/Significant other Family History: Reviewed & Not Pertinent, CAD Pulmonary Medical History: Reports: Hx Asthma - DX AT THE AGE 7 Endocrine Medical History: Reports: Hx Diabetes Mellitus Type 2 - DX 2 YEARS AGO Renal/ Medical History: Denies: Hx Peritoneal Dialysis Musculoskeltal Medical History: Reports Hx Muscular Dystrophy Past Surgical History: Reports: Hx Adenoidectomy, Hx Tonsillectomy - 13 YEARS OLD - Immunizations Immunizations up to date: Yes Hx Diphtheria, Pertussis, Tetanus Vaccination: No Review of Systems - Review of Systems Notes: Constitutional: Negative for fever. HENT: Negative for sore throat. Eyes: Negative for visual changes. Cardiovascular: Negative for chest pain. Respiratory: Negative for shortness of breath. Gastrointestinal: Negative for abdominal pain, vomiting or diarrhea. Genitourinary: Negative for dysuria. Musculoskeletal: Positive for left great toe bruising Skin: Negative for rash. Neurological: Negative for headaches, weakness or numbness. 10 point ROS negative except as marked above and in HPI. Physical Exam - Vital signs Vitals: Temp Pulse Resp BP Pulse Ox 97.7 F 109 H 18 154/88 H 99 08/27/16 19:09 08/27/16 19:09 08/27/16 19:09 08/27/16 19:09 08/27/16 19:09 Interpretation: Hypertensive, Tachycardic Notes: PHYSICAL EXAMINATION: GENERAL: Well-appearing, well-nourished and in no acute distress. HEAD: Atraumatic, normocephalic. EYES: sclera anicteric, conjunctiva are normal. ENT: Moist mucous membranes. NECK: Normal range of motion LUNGS: Normal work of breathing HEART: 2+ radial pulses bilaterally EXTREMITIES: There is a small subungual hematoma of the left great toe. No swelling, erythema or deformity of the joint NEUROLOGICAL: No focal neurological deficits. Moves all extremities spontaneously and on command. PSYCH: Normal mood, normal affect. SKIN: Warm, Dry, normal turgor, no rashes or lesions noted. Course - Re-evaluation Re-evalutation: 08/27/16 21:37 Patient presents with concerns subungual hematoma of his left great toe and the possibility of associated infection. Patient denies any actual concerns for an acute infection but is worried that the subungual hematoma could result in infection. He has no evidence of a cellulitis, abscess or purulent material underneath the nail. Otherwise no additional symptoms, vitals within normal limits at the time of my assessment. Notably there is any indication for labs or imaging at this time. He denies any pain to the area, full flexion and extension of the toe both without resistance and against resistance. I have instructed the patient to monitor the area closely and return for any additional symptoms that will be worrisome for infection. - Vital Signs Vital signs: Temp Pulse Resp BP Pulse Ox 97.6 F 98 20 148/82 H 99 08/27/16 21:35 08/27/16 21:35 08/27/16 21:35 08/27/16 21:35 08/27/16 21:35 Discharge - Discharge Clinical Impression: Subungual hematoma Condition: Good Disposition: HOME, SELF-CARE Additional Instructions: Please return if you develop spreading redness in the area, increasing pain to the area, swelling of the toe, pus draining from the area, or any other symptoms that are worrisome to you. Referrals: JENNA CAMPA MD [Primary Care Provider] - Follow up as needed
[2016-08-27 21:41] VITALS: BP 148/82
== END 2016-08-27 21:41 | disposition home or self-care (01) ==
LOC: ER 19:02
DX: S90.212A Contusion of left great toe with damage to nail, initial encounter (principal); X58.XXXA Exposure to other specified factors, initial encounter; E11.9 Type 2 diabetes mellitus without complications; J45.909 Unspecified asthma, uncomplicated; Z88.0 Allergy status to penicillin
CPT/HCPCS: 99283

== ENCOUNTER 2017-08-25 09:57 | Emergency (ER) | payer MEDICAID ==
[2017-08-25] MEDS ORDERED: LIDOCAINE 1% INJ-PF (10 MG/ML) 30 ML SDV INJ ONE (10:32)
[2017-08-25] MEDS ORDERED: DIPH/PERTUSS(ACELL)/TETANUS VAC/PF 0.5 ML SYR (>=10YO) IM ONE (10:47)
--- NOTE | 2017-08-25 10:50 | ER Document Report ---
ED Hand/Wrist Injury - General Chief Complaint: Laceration Stated Complaint: LEFT HAND INJURY Time Seen by Provider: 08/25/17 10:25 Mode of Arrival: Ambulatory Information source: Patient Notes: 37-year-old male presented to ED for laceration to the left hand between the thumb and index finger. He states he was trying to cut a zip tie with a knife when he accidentally cut his hand. Bleeding is under control. It is a 1 cm laceration to the web of the left hand between the first and second finger. Patient is alert and oriented pupils equal and react to light. He does have a history of muscular dystrophy high blood pressure diabetes with multiple fractures. He has had surgeries for right ankle and left hip fractures. He is also had a TNA and ear tubes. TRAVEL OUTSIDE OF THE [place] IN LAST 30 DAYS: No - HPI Injury to: Hand - Between 1st and second finger Onset: Just prior to arrival Where: Home, Indoors Timing: Still present Quality of pain: Sharp Severity: Moderate Pain Level: 3 Context: Laceration - Related Data Allergies/Adverse Reactions: Penicillins Allergy (Verified 08/25/17 10:00) Past Medical History - General Information source: Patient - Social History Smoking Status: Current Every Day Smoker Cigarette use (# per day): Yes - 12 cigarettes a day Chew tobacco use (# tins/day): No Smoking Education Provided: Yes - 4 minutes Frequency of alcohol use: Occasional Drug Abuse: None 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: Table due to muscular dystrophy Lives with: Family Family History: Reviewed & Not Pertinent, CAD Patient has suicidal ideation: No Patient has homicidal ideation: No - Past Medical History Cardiac Medical History: Reports: Hx Hypertension Pulmonary Medical History: Reports: Hx Asthma - DX AT THE AGE 7 EENT Medical History: Reports: None Neurological Medical History: Reports: None Endocrine Medical History: Reports: Hx Diabetes Mellitus Type 2 - DX 2 YEARS AGO Renal/ Medical History: Reports: None Malignancy Medical History: Reports None GI Medical History: Reports: None Musculoskeltal Medical History: Reports Hx Muscular Dystrophy, Reports Hx Musculoskeletal Deformity, Reports Hx Musculoskeletal Trauma Skin Medical History: Reports None Psychiatric Medical History: Reports: None Traumatic Medical History: Reports: Hx Fractures - Right ankle left hip right knee Infectious Medical History: Reports: None Past Surgical History: Reports: Hx Adenoidectomy, Hx Orthopedic Surgery - Right ankle left hip repair, Hx Tonsillectomy - 13 YEARS OLD - Immunizations Immunizations up to date: Yes Hx Diphtheria, Pertussis, Tetanus Vaccination: Yes Review of Systems - Review of Systems Constitutional: No symptoms reported EENT: No symptoms reported Cardiovascular: No symptoms reported Respiratory: No symptoms reported Gastrointestinal: No symptoms reported Genitourinary: No symptoms reported Male Genitourinary: No symptoms reported Musculoskeletal: No symptoms reported Skin: Other - Laceration between the first and second finger on the left hand Hematologic/Lymphatic: No symptoms reported Neurological/Psychological: No symptoms reported -: Yes All other systems reviewed and negative Physical Exam - Vital signs Vitals: Temp Pulse Resp BP Pulse Ox 98.0 F 93 18 140/86 H 100 08/25/17 10:02 08/25/17 10:02 08/25/17 10:02 08/25/17 10:02 08/25/17 10:02 Interpretation: Normal - General General appearance: Appears well, Alert - HEENT Head: Normocephalic, Atraumatic Eyes: Normal Pupils: PERRL - Respiratory Respiratory status: No respiratory distress Chest status: Nontender Breath sounds: Normal Chest palpation: Normal - Cardiovascular Rhythm: Regular Heart sounds: Normal auscultation Murmur: No - Abdominal Inspection: Normal Distension: No distension Bowel sounds: Normal Tenderness: Nontender Organomegaly: No organomegaly - Back Back: Normal, Nontender - Extremities General upper extremity: Normal color, Normal ROM, Normal temperature General lower extremity: Normal inspection, Nontender, Normal color, Normal ROM , Normal temperature, Normal weight bearing. No: Kinsey's sign Hand: Tender, Laceration - Laceration between first and second finger, No evidence of human bite, No evidence of FB - Neurological Neuro grossly intact: Yes Cognition: Normal Orientation: AAOx4 Andra Coma Scale Eye Opening: Spontaneous Andra Coma Scale Verbal: Oriented Andra Coma Scale Motor: Obeys Commands Andes Coma Scale Total: 15 Speech: Normal Motor strength normal: LUE, RUE, LLE, RLE Sensory: Normal - Psychological Associated symptoms: Normal affect, Normal mood - Skin Skin Temperature: Warm Skin Moisture: Dry Skin Color: Normal Skin irregularity: Laceration Location of irregularity: Extremities - Left hand Character of irregularity: Linear Course - Vital Signs Vital signs: Temp Pulse Resp BP Pulse Ox 97.4 F 81 18 138/91 H 99 08/25/17 11:22 08/25/17 11:22 08/25/17 10:02 08/25/17 11:22 08/25/17 11:22 Procedures - Laceration/Wound Repair Left Hand Time completed: 11:10 Wound length (cm): 2.2 Wound's Depth, Shape: Superficial, Linear Laceration pre-procedure: Sterile PPE donned, Sterile drapes applied Anesthetic type: 1% Lidocaine Volume Anesthetic (mLs): 5 Wound explored: Contaminated Irrigated w/ Saline (mLs): 300 Wound Repaired With: Sutures Suture Size/Type: 4:0, Ethilon Number of Sutures: 4 Layer Closure?: No Post-procedure wound care: Sterile dressing applied Post-procedure NV exam normal: Yes Complications: No Hands front picture: 1 - 2.2 cm laceration in the web between the first and second finger superficial no ligament or tendon damage full range of motion to the all fingers Discharge - Discharge Clinical Impression: Laceration of left hand Qualifiers: Encounter type: initial encounter Foreign body presence: without foreign body Qualified Code(s): S61.412A - Laceration without foreign body of left hand, initial encounter Condition: Stable Disposition: HOME, SELF-CARE Additional Instructions: Hand Laceration A laceration on the hand can present special problems. It may be difficult to keep the wound dry. Motion of the fingers can disturb the healing edges. Your work may involve exposure to damaging chemicals or water. Keep the wound clean and dry. If you can't keep the cut dry, undisturbed, and free of chemical exposure, please discuss this with the doctor. If any water or chemical gets onto the dressing, remove it, blot the wound dry, then apply a fresh bandage. Dressings should be changed every day. If you feel the stitches pulling as you move the hand, a splint or other form of protection is needed. If any signs of infection occur (swelling, redness, increasing tenderness, red streaks, tender lumps in the armpit, or fever), see the doctor immediately. SOAP CLEANSING: Gently wash the wound daily using a mild soap (like Ivory, Phisoderm, Neutrogena). Use warm water, rubbing gently until all debris, ooze, and crusting have been washed from the wound. Allow to dry briefly (about 10 minutes) after cleaning. Repeat this cleansing at least three times a day for the first two days and then once or twice a day. ANTIBIOTIC OINTMENT PROTECTION: Your wounds are such that dressing them is not practical or optional. After cleansing, you should apply a thin coating of antibiotic ointment ( Bacitracin, not Neosporin) to the wounds at least three times daily. This lessens infection risk, and may decrease the amount of scarring. Use a q-tip or dull butter knife, not your finger, to apply this ointment. Any debris or ooze which builds up in the ointment should be gently rubbed off with a sterile gauze pad. Harder crusting may need to be gently scrubbed off with a clean wash cloth with soap and warm water, perhaps applying a warm, wet wash cloth to the wound for ten minutes first. Development of redness, severe itching, or blistering may mean allergy to the ointment. See the doctor. TETANUS IMMUNIZATION GIVEN: You have been given an immunization against tetanus. Please record this in your records. In general, a booster is needed only once every 10 years. The tetanus shot protects against tetanus or "lockjaw," which is a complication of certain wound infections (the tetanus shot cannot protect against the actual infection). The immunization site may become warm and red due to local reaction. If this occurs, apply warm compresses and take aspirin or ibuprofen to reduce inflammation and discomfort. Return for evaluation if the reaction becomes severe. Doxycycline Doxycycline (Vibramycin, Doryx) is an antibiotic of the tetracycline family. This type of drug is useful for infections of the respiratory tract and genital tract, and is sometimes used for intestinal infections. Unlike most tetracyclines, doxycycline can be taken with food. It is longer acting, and (usually) less prone to side effects than regular tetracycline. Tetracycline antibiotics can stain immature teeth and SHOULD NOT BE TAKEN BY CHILDREN, NURSING MOTHERS, OR WOMEN. Tetracyclines can make you more prone to sunburn. Abdominal cramping, nausea, and diarrhea are occasional side effects. Women may experience vaginal yeast infections. Call the doctor at once if you develop hives, itching, shortness of breath , or lightheadedness. FOLLOW-UP CARE: Please return in __3___ days for an infection check and dressing change. Your sutures should be removed in ___10__ days. To facilitate a timely removal of your sutures, you may return to the Emergency Department at [facility]. You do not need to call for an appointment, but the best time to come in for suture removal is early in the morning. If you have been referred to another physician for follow-up care, call that physicians office for an appointment as you were instructed. If you experience a significant change in your laceration, or if you are concerned there may be an infection (swelling, redness, drainage, increasing tenderness, red streaks, tender lumps in the armpit or groin above the laceration, or fever) , return to the Emergency Department immediately re-evaluation. Prescriptions: Doxycycline Hyclate [Vibramycin] 100 mg PO BID #10 capsule Forms: Elevated Blood Pressure, Smoking Cessation Education Referrals: JENNA CAMPA MD [Primary Care Provider] - Follow up in 3-5 days
[2017-08-25] MEDS ORDERED: DOXYCYCLINE HYCLATE 100 MG TABLET PO ONE (11:08)
[2017-08-25 11:23] VITALS: BP 138/91
== END 2017-08-25 11:25 | disposition home or self-care (01) ==
LOC: ER 09:57
PROC: 0HQGXZZ Repair Left Hand Skin, External Approach (ICD-10-PCS; principal; 2017-08-25)
DX: S61.412A Laceration without foreign body of left hand, initial encounter (principal); W26.0XXA Contact with knife, initial encounter; G71.0 Muscular dystrophy; I10 Essential (primary) hypertension; E11.9 Type 2 diabetes mellitus without complications; J45.909 Unspecified asthma, uncomplicated; Z87.81 Personal history of (healed) traumatic fracture; F17.210 Nicotine dependence, cigarettes, uncomplicated
CPT/HCPCS: 99283; 90471; 90715; 12001; J3490 ×2

== ENCOUNTER 2018-04-30 09:13 | Emergency (ER) | payer MEDICAID ==
[2018-04-30] MEDS ORDERED: IPRATROPIUM/ALBUTEROL 0.5-2.5 MG/3 ML AMPUL NEB ONE (09:56)
--- NOTE | 2018-04-30 10:03 | ER Document Report ---
ED General - General Chief Complaint: Abscess Stated Complaint: COUGH Time Seen by Provider: 04/30/18 09:43 Primary Care Provider: JENNA CAMPA MD [Primary Care Provider] - Follow up as needed SELIN LEWIS MD [[facility]] - Follow up as needed Mode of Arrival: Ambulatory Information source: Patient Notes: Patient presents complaining of a cough for the past 2-3 weeks and an abscess to the scrotum for the past 2 weeks. Patient states the abscess gradually started to worsen over the past 4 days. Patient denies any fever. Patient does report a history of diabetes although he does not regularly check his blood sugar. Patient has been compliant with taking his metformin. TRAVEL OUTSIDE OF THE [place] IN LAST 30 DAYS: No - HPI Onset: Other - 2 weeks Onset/Duration: Worse Quality of pain: Achy Pain Level: 4 Associated symptoms: Nonproductive cough. denies: Chest pain, Fever, Nausea, V omiting Exacerbated by: Denies Relieved by: Denies Similar symptoms previously: No Recently seen / treated by doctor: No - Related Data Allergies/Adverse Reactions: Penicillins Allergy (Verified 08/25/17 10:00) Past Medical History - General Information source: Patient - Social History Smoking Status: Former Smoker Frequency of alcohol use: None Drug Abuse: None Occupation: None Family History: Reviewed & Not Pertinent, CAD - Medical History Medical History: Other - Muscular dystrophy - Past Medical History Cardiac Medical History: Reports: Hx Hypertension Pulmonary Medical History: Reports: Hx Asthma - DX AT THE AGE 7 Endocrine Medical History: Reports: Hx Diabetes Mellitus Type 2 - DX 2 YEARS AGO Renal/ Medical History: Denies: Hx Peritoneal Dialysis Musculoskeletal Medical History: Reports Hx Muscular Dystrophy, Reports Hx Musculoskeletal Deformity, Reports Hx Musculoskeletal Trauma Traumatic Medical History: Reports: Hx Fractures - Right ankle left hip right knee Past Surgical History: Reports: Hx Adenoidectomy, Hx Orthopedic Surgery - Right ankle left hip repair, Hx Tonsillectomy - 13 YEARS OLD - Immunizations Immunizations up to date: Yes Hx Diphtheria, Pertussis, Tetanus Vaccination: Yes Review of Systems - Review of Systems Constitutional: No symptoms reported. denies: Fever EENT: No symptoms reported Cardiovascular: denies: Chest pain Respiratory: Cough, Sputum. denies: Short of breath Gastrointestinal: No symptoms reported. denies: Abdominal pain, Nausea, Vomiting Genitourinary: No symptoms reported. denies: Dysuria Male Genitourinary: No symptoms reported Musculoskeletal: No symptoms reported Skin: Other - Abscess to scrotum Hematologic/Lymphatic: No symptoms reported Neurological/Psychological: No symptoms reported Physical Exam - Vital signs Vitals: Temp Pulse Resp BP Pulse Ox 97.7 F 85 16 136/78 H 100 04/30/18 09:21 04/30/18 09:21 04/30/18 09:21 04/30/18 09:21 04/30/18 09:21 - General General appearance: Appears well, Alert In distress: None - HEENT Head: Normocephalic, Atraumatic Eyes: Normal Conjunctiva: Normal Nasal: Normal Mouth/Lips: Normal Mucous membranes: Normal Neck: Normal, Supple. No: Lymphadenopathy - Respiratory Respiratory status: No respiratory distress Chest status: Nontender Breath sounds: Nonproductive cough, Rhonchi. No: Rales Chest palpation: Normal - Cardiovascular Rhythm: Regular. No: Tachycardia Heart sounds: S1 appreciated, S2 appreciated - Abdominal Inspection: Obese Distension: No distension Bowel sounds: Normal Tenderness: Nontender Organomegaly: No organomegaly - Genitourinary Inspection: Other - Scrotal abscess to right side Scrotum: Swelling, Redness, Other - Abscess to right side of scrotum - Back Back: Normal, Nontender - Extremities General upper extremity: Normal inspection, Normal strength General lower extremity: Normal inspection, Normal strength - Neurological Neuro grossly intact: Yes Cognition: Normal Andra Coma Scale Eye Opening: Spontaneous Andra Coma Scale Verbal: Oriented [place] Coma Scale Motor: Obeys Commands Andra Coma Scale Total: 15 - Psychological Associated symptoms: Normal affect, Normal mood - Skin Skin Temperature: Warm Skin Moisture: Dry Course - Re-evaluation Re-evalutation: 04/30/18 10:[address] Lewis, Dr. Lewis to bedside for examination. 04/30/18 10:05 plans in room incision and drainage procedure. 04/30/18 12:41 Dr. Lewis to bedside for procedure. 04/30/18 12:51 Dr. Lewis finished incision and drainage procedure. Recommends having patient remove packing on Wednesday of this week. Recommends having patient follow-up in the clinic as needed. - Vital Signs Vital signs: Temp Pulse Resp BP Pulse Ox 97.6 F 87 20 133/82 H 100 04/30/18 13:02 04/30/18 13:02 04/30/18 13:02 04/30/18 13:02 04/30/18 13:02 - Laboratory Result Diagrams: 04/30/18 12:06 04/30/18 12:06 Laboratory results interpreted by me: 04/30/18 04/30/18 12:06 13:20 WBC 17.8 H RBC 6.22 H RDW 14.1 H Abs Neuts (Manual) 13.0 H POC Glucose 186 H Labs- Entire Visit 04/30/18 04/30/18 04/30/18 12:06 12:06 13:20 WBC 17.8 H RBC 6.22 H Hgb 17.0 Hct 50.3 MCV 81 MCH 27.3 MCHC 33.8 RDW 14.1 H Plt Count 226 Total Counted 100 Seg Neutrophils % Not Reportable Seg Neuts % (Manual) 73 Lymphocytes % Not Reportable Lymphocytes % (Manual) 21 Monocytes % Not Reportable Monocytes % (Manual) 3 Eosinophils % Not Reportable Eosinophils % (Manual) 3 Basophils % Not Reportable Basophils % (Manual) 0 Absolute Neutrophils Not Reportable Abs Neuts (Manual) 13.0 H Absolute Lymphocytes Not Reportable Abs Lymphs (Manual) 3.7 Absolute Monocytes Not Reportable Abs Monocytes (Manual) 0.5 Absolute Eosinophils Not Reportable Absolute Eos (Manual) 0.5 Absolute Basophils Not Reportable Abs Basophils (Manual) 0.0 Nucleated RBCs 1 Toxic Granulation 1+ Platelet Comment ADEQUATE Hypochromasia SLIGHT Anisocytosis SLIGHT Microcytosis SLIGHT Sodium Cancelled Potassium Cancelled Chloride Cancelled Carbon Dioxide Cancelled Anion Gap Cancelled BUN Cancelled Creatinine Cancelled Est GFR ( Amer) Cancelled Est GFR (Non-Af Amer) Cancelled Glucose Cancelled POC Glucose 186 H Calcium Cancelled Discharge - Discharge Clinical Impression: Scrotal abscess, Bronchitis Diabetes mellitus Qualifiers: Diabetes mellitus type: type 2 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 Lewis in the clinic, call Wednesday for an appointment time You may remove your packing from the wound on Wednesday. Prescriptions: Albuterol Sulfate [Proair Hfa Inhalation Aerosol 8.5 gm Mdi] 2 puff IH Q4 PRN #1 mdi PRN Reason: Clindamycin HCl [Cleocin Hcl] 300 mg PO QID #28 capsule Hydrocodone/Acetaminophen [[place] 5-325 mg Tablet] 1 tab PO Q6 PRN #10 tablet PRN Reason: Referrals: JENNA CAMPA MD [Primary Care Provider] - Follow up as needed SELIN LEWIS MD [[facility]] - Follow up as needed
[2018-04-30] MEDS ORDERED: CLINDAMYCIN 600 MG/D5W RTU 600 MG/50 ML RTUPB IV ONE (10:05)
[2018-04-30] MEDS ORDERED: LIDOCAINE 1% INJ-PF (10 MG/ML) 30 ML SDV INJ ONE (10:05)
--- NOTE | 2018-04-30 11:11 | RADIOLOGY REPORT (SQ) ---
EXAM DESCRIPTION: CHEST 2 VIEWS COMPLETED DATE/TIME: 04/30/2018 10:57 am REASON FOR STUDY: cough COMPARISON: Two-view chest 12/10/2014 EXAM PARAMETERS: NUMBER OF VIEWS: two views TECHNIQUE: Digital Frontal and Lateral radiographic views of the chest acquired. RADIATION DOSE: NA LIMITATIONS: none FINDINGS: LUNGS AND PLEURA: No opacities, masses or pneumothorax. No pleural effusion. MEDIASTINUM AND HILAR STRUCTURES: No masses or contour abnormalities. HEART AND VASCULAR STRUCTURES: Stable mild cardiomegaly BONES: No acute findings. HARDWARE: None in the chest. OTHER: No other significant finding. IMPRESSION: NO ACUTE RADIOGRAPHIC FINDING IN THE CHEST. TECHNICAL DOCUMENTATION: JOB ID: [id number] [employer]- All Rights Reserved Reading location - IP/workstation name: [email or web address]
[2018-04-30 12:37] LABS: HEMATOCRIT 50.3 % (37.9-51.0); MEAN CORPUSCULAR HEMOGLOBIN 27.3 pg (27.0-33.4); MEAN CORPUSCULAR HGB CONC 33.8 g/dL (32.0-36.0); MEAN CORPUSCULAR VOLUME 81 fl (80-97); PLATELET COUNT 226 10^3/uL (150-450); RED BLOOD COUNT 6.22 10^6/uL (4.35-5.55); RED CELL DISTRIBUTION WIDTH 14.1 % (11.5-14.0); WHITE BLOOD COUNT 17.8 10^3/uL (4.0-10.5)
[2018-04-30 12:54] LABS: ABSOLUTE LYMPHOCYTES# (MANUAL) 3.7 10^3/uL (0.5-4.7); ABSOLUTE MONOCYTES # (MANUAL) 0.5 10^3/uL (0.1-1.4); BASOPHILS % (MANUAL) 0 % (0-2); EOSINOPHILS % (MANUAL) 3 % (0-6); LYMPHOCYTES % (MANUAL) 21 % (13-45); MONOCYTES % (MANUAL) 3 % (3-13); NUCLEATED RED BLOOD CELLS 1 /100 WBC (0); SEGMENTED NEUTROPHILS % (MAN) 73 % (42-78); TOTAL CELLS COUNTED 100
[2018-04-30 12:59] LABS: ANISOCYTOSIS SLIGHT; HYPOCHROMASIA SLIGHT; PLATELET COMMENT ADEQUATE; TOXIC GRANULATION 1+
[2018-04-30 13:04] VITALS: BP 133/82
--- NOTE | 2018-04-30 17:02 | OPERATIVE REPORT E ---
Operative Report NAME: GAGAN MADDEN : 1980 AGE: 37Y DATE OF SURGERY: 04/30/2018 ROOM: PREOPERATIVE DIAGNOSIS: ABSCESS, RIGHT SCROTAL BASE AREA. POSTOPERATIVE DIAGNOSIS: ABSCESS, RIGHT SCROTAL BASE AREA. OPERATION: I and D of abscess, right scrotal base area. SURGEON: SELIN ALVAREZ M.D. ANESTHESIA: Local. INDICATION: This is a 37-year-old male diabetic who noted pain on the right scrotal area a couple of weeks ago. About 4 days ago started to swell and more painful. Decided to go to ED. He was found to have an abscess about 2 x 2 cm along the right scrotal base close to the groin crease. PROCEDURE: The patient was placed in the supine position and the right scrotal area was then prepped and draped in the usual sterile fashion. Local anesthesia infiltrated along the area of the abscess site which has some fluctuation. A cruciate incision was made and purulent dark material, foul-smelling extruded out. It was then bluntly dilated with a hemostat. All of the foul smelling drainage was evacuated. It was subsequently packed with 1/4-inch Iodoform gauze. Sterile dressings placed over the operative site. Needle, instrument and sponge count were all correct. The patient tolerated the procedure well. Patient was given a prescription for clindamycin and instructed to remove the packing at home in 2 days. He will be followed up in the clinic in about a week or two. ESTIMATED BLOOD LOSS: About 5 mL. DICTATING PHYSICIAN: SELIN ALVAREZ M.D. [id number] PHY#: [id number] ID: [id number] JOB#: [id number] ACCT: [id number] cc:SELIN ALVAREZ M.D. > MTDD
== END 2018-04-30 13:32 | disposition home or self-care (01) ==
LOC: ER 09:13
DX: N49.2 Inflammatory disorders of scrotum (principal); J40 Bronchitis, not specified as acute or chronic; E11.8 Type 2 diabetes mellitus with unspecified complications; R05 Cough; Z79.84 Long term (current) use of oral hypoglycemic drugs; I10 Essential (primary) hypertension
CPT/HCPCS: 36415; 82962; 85025; 71046; A6266; S0077; J3490; J7620

== ENCOUNTER 2019-07-24 12:13 | Emergency (ER) | payer MEDICAID ==
--- NOTE | 2019-07-24 12:31 | ER Document Report ---
ED Medical Screen (RME) - General Chief Complaint: Abnormal Lab Results Stated Complaint: ABNORMAL LABS Time Seen by Provider: 07/24/19 12:27 Primary Care Provider: BRAD AIKEN FNP [Primary Care Provider] - Follow up as needed Mode of Arrival: Ambulatory Information source: Patient Notes: 39-year-old male presented to ED for complaint of abnormal lab values. He states that he went and saw his provider Brad Arita [facility] at [facility] for lab draw 10 times and both times the lab values were abnormal. He states his WBCs were high and his potassium was high and he was told that he needed to come to the emergency room for these elevated labs. He states he has a history of muscular dystrophy and diabetes. States he does not have any kidney problems. Patient is alert oriented respirations regular nonlabored speaking in full sentences. I have greeted and performed a rapid initial assessment of this patient. A comprehensive ED assessment and evaluation of the patient, analysis of test results and completion of medical decision making process will be conducted by an additional ED providers. TRAVEL OUTSIDE OF THE [place] IN LAST 30 DAYS: No - Related Data Allergies/Adverse Reactions: Penicillins Allergy (Verified 08/25/17 10:00) Past Medical History - Past Medical History Cardiac Medical History: Reports: Hx Hypertension Pulmonary Medical History: Reports: Hx Asthma - DX AT THE AGE 7 Endocrine Medical History: Reports: Hx Diabetes Mellitus Type 2 - DX 2 YEARS AGO Renal/ Medical History: Denies: Hx Peritoneal Dialysis Musculoskeltal Medical History: Reports Hx Muscular Dystrophy, Reports Hx Musculoskeletal Deformity, Reports Hx Musculoskeletal Trauma Traumatic Medical History: Reports: Hx Fractures - Right ankle left hip right knee Past Surgical History: Reports: Hx Adenoidectomy, Hx Orthopedic Surgery - Right ankle left hip repair, Hx Tonsillectomy - 13 YEARS OLD - Immunizations Immunizations up to date: Yes Hx Diphtheria, Pertussis, Tetanus Vaccination: Yes Physical Exam - Vital signs Vitals: Temp Pulse Resp BP Pulse Ox 97.7 F 112 H 16 141/92 H 98 07/24/19 12:18 07/24/19 12:18 07/24/19 12:18 07/24/19 12:18 07/24/19 12:18 Course - Vital Signs Vital signs: Temp Pulse Resp BP Pulse Ox 97.7 F 112 H 16 141/92 H 98 07/24/19 12:18 07/24/19 12:18 07/24/19 12:18 07/24/19 12:18 07/24/19 12:18 Doctor's Discharge - Discharge Referrals: BRAD AIKEN FNP [Primary Care Provider] - Follow up as needed
[2019-07-24] MEDS ORDERED: NORMAL SALINE 1000 ML 1,000 ML IV ONE ×3 (12:53→14:55)
--- NOTE | 2019-07-24 12:53 | ER Document Report ---
ED General - General Chief Complaint: Abnormal Lab Results Stated Complaint: ABNORMAL LABS Time Seen by Provider: 07/24/19 12:27 Primary Care Provider: BRAD AIKEN FNP [Primary Care Provider] - Follow up as needed Mode of Arrival: Ambulatory Notes: HPI: Patient is a 39-year-old male with childhood muscular dystrophy as well as diabetes who presents today after seeing his primary care physician last week for generalized labs. He supposedly had a slightly elevated potassium. It was repeated today today and the levels supposedly "pam". Patient himself states he has had a few bouts of diarrhea over the last few days. No recent antibiotics or travel. He denies any abdominal pain, fevers, vomiting, blood in the stool, chest pain, cough, shortness of breath. Patient does have muscular dystrophy since he was a child but states that he is able to walk. He states if he lays down flat he sometimes needs some assistance to stand up but this has not changed for many years. I have received the laboratory values from the patient's primary care physician at [facility]. His white blood cell count was 15, potassium 6.2, creatinine 0.31, glucose 87. ROS: See HPI All other review of systems reviewed and otherwise negative Reviewed vital signs and nursing note as charted by RN. PHYSICAL EXAM: CONSTITUTIONAL: Alert and oriented and responds appropriately to questions. Well-appearing; well-nourished HEAD: Normocephalic; atraumatic EYES: PERRL; Conjunctivae clear, sclerae non-icteric ENT: Normal nose; no rhinorrhea; moist mucous membranes; pharynx without lesions noted NECK: Supple without meningismus; non-tender; no cervical lymphadenopathy, no masses CARD: Regular rate and rhythm; no murmurs; symmetric distal pulses RESP: Normal chest excursion without splinting or tachypnea; breath sounds clear and equal bilaterally; no wheezes, no rhonchi, no rales ABD/GI: Normal bowel sounds; non-distended; soft, non-tender; no palpable organomegaly or masses BACK: The back appears normal and is non-tender to palpation EXT: Normal ROM in all joints; non-tender to palpation; no edema SKIN: No acute lesions noted NEURO: CN 2-12 intact; 5/5 bilateral upper and lower extremity strength with sensation intact to light touch PSYCH: The patient's mood and manner are appropriate. Grooming and personal hygiene are appropriate. TRAVEL OUTSIDE OF THE [place] IN LAST 30 DAYS: No - Related Data Allergies/Adverse Reactions: Penicillins Allergy (Verified 08/25/17 10:00) Past Medical History - General Information source: Patient - Social History Smoking Status: Former Smoker Frequency of alcohol use: None Drug Abuse: None Family History: Reviewed & Not Pertinent, CAD Patient has suicidal ideation: No Patient has homicidal ideation: No - Past Medical History Cardiac Medical History: Reports: Hx Hypertension Pulmonary Medical History: Reports: Hx Asthma - DX AT THE AGE 7 Endocrine Medical History: Reports: Hx Diabetes Mellitus Type 2 - DX 2 YEARS AGO Renal/ Medical History: Denies: Hx Peritoneal Dialysis Musculoskeletal Medical History: Reports Hx Muscular Dystrophy, Reports Hx Musculoskeletal Deformity, Reports Hx Musculoskeletal Trauma Traumatic Medical History: Reports: Hx Fractures - Right ankle left hip right knee Past Surgical History: Reports: Hx Adenoidectomy, Hx Orthopedic Surgery - Right ankle left hip repair, Hx Tonsillectomy - 13 YEARS OLD - Immunizations Immunizations up to date: Yes Hx Diphtheria, Pertussis, Tetanus Vaccination: Yes Physical Exam - Vital signs Vitals: Temp Pulse Resp BP Pulse Ox 97.7 F 112 H 16 141/92 H 98 07/24/19 12:18 07/24/19 12:18 07/24/19 12:18 07/24/19 12:18 07/24/19 12:18 Course - Re-evaluation Re-evalutation: 07/24/19 12:51 Given the above history and physical I do believe an infectious diarrhea to be unlikely. I will repeat the patient's laboratory values and provide a liter of fluid. Patient denies any and all abdominal pain. Patient has had no vomiting. No blood in the diarrhea. 07/24/19 12:58 EKG shows a rate of 104, sinus tachycardia, normal axis, no obvious ST elevation. No obvious peak T waves. 07/24/19 14:55 Labs as recorded thus far. Chemistry is pending. Urinalysis shows greater than 80 ketones. Second liter of IV fluid has been provided. I did call and speak to the primary care physician who sent the patient here for evaluation. I have expressed that we will repeat the laboratory values here. He understands to make sure that the patient gets nephrology follow-up. I have discussed with the patient that I would not advise him continuing the ketogenic diet he started 2 days ago. 07/24/19 15:22 Potassium here as recorded. Patient has had no episodes of diarrhea here. Still has no abdominal pain. I have provided 2 L of IV fluid given the patient's ketone levels. Glucose as recorded. - Vital Signs Vital signs: Temp Pulse Resp BP Pulse Ox 97.7 F 112 H 25 H 151/91 H 98 07/24/19 12:18 07/24/19 12:18 07/24/19 13:00 07/24/19 12:36 07/24/19 14:00 - Laboratory Result Diagrams: 07/24/19 14:33 07/24/19 14:33 Laboratory results interpreted by me: 07/24/19 07/24/19 07/24/19 13:40 14:33 14:33 WBC 13.8 H RBC 5.82 H RDW 14.4 H Lymph % (Auto) 12.0 L Absolute Neuts (auto) 11.3 H Seg Neutrophils % 82.1 H Sodium 134.5 L Chloride 97 L Creatinine 0.32 L ALT 54 H Urine Glucose (UA) >=500 H Urine Ketones 80 H Discharge - Discharge Clinical Impression: Diarrhea Qualifiers: Diarrhea type: unspecified type Qualified Code(s): R19.7 - Diarrhea, unspecified Condition: Good Disposition: HOME, SELF-CARE Additional Instructions: Come back immediately for any increased diarrhea, blood in the diarrhea, abdominal pain, fevers, lightheadedness or dizziness, or any other acute problems. Please make sure that you follow-up with your primary care physician for reassessment of your white blood cell count, potassium level, and diarrhea. Referrals: BRAD AIKEN FNP [Primary Care Provider] - Follow up as needed
[2019-07-24 14:16] LABS: APPEARANCE,URINE CLEAR; BILIRUBIN,URINE NEGATIVE (NEGATIVE); COLOR,URINE YELLOW; GLUCOSE, URINE >=500 mg/dL (NEGATIVE); KETONES,URINE 80 mg/dL (NEGATIVE); PROTEIN,URINE NEGATIVE (NEGATIVE); URINE SPECIFIC GRAVITY 1.024; UROBILINOGEN,URINE NEGATIVE mg/dL (<2.0)
[2019-07-24 14:43] LABS: ABSOLUTE BASOPHILS # (AUTO) 0.1 10^3/uL (0.0-0.2); ABSOLUTE EOSINOPHILS # (AUTO) 0.2 10^3/uL (0.0-0.6); ABSOLUTE LYMPHOCYTES (AUTO) 1.7 10^3/uL (0.5-4.7); ABSOLUTE MONOCYTES (AUTO) 0.6 10^3/uL (0.1-1.4); ABSOLUTE NEUT (AUTO) 11.3 10^3/uL (1.7-8.2); BASOPHILS % (AUTO) 0.5 % (0-2); EOSINOPHILS % (AUTO) 1.3 % (0-6); HEMATOCRIT 47.1 % (37.9-51.0); HEMOGLOBIN 16.1 g/dL (13.5-17.0); MEAN CORPUSCULAR HEMOGLOBIN 27.7 pg (27.0-33.4); MEAN CORPUSCULAR HGB CONC 34.2 g/dL (32.0-36.0); MEAN CORPUSCULAR VOLUME 81 fl (80-97); MONOCYTES % (AUTO) 4.1 % (3-13); PLATELET COUNT 237 10^3/uL (150-450); RED BLOOD COUNT 5.82 10^6/uL (4.35-5.55); RED CELL DISTRIBUTION WIDTH 14.4 % (11.5-14.0); SEGMENTED NEUTROPHILS % (AUTO) 82.1 % (42-78); TOTAL CELLS COUNTED % (AUTO) 100 %; WHITE BLOOD COUNT 13.8 10^3/uL (4.0-10.5)
[2019-07-24 15:09] LABS: ALBUMIN 4.7 g/dL (3.5-5.0); ALKALINE PHOSPHATASE 126 U/L (38-126); ANION GAP 16 (5-19); ASPARTATE AMINO TRANSFERASE 48 U/L (17-59); BILIRUBIN,DIRECT 0.1 mg/dL (0.0-0.4); BILIRUBIN,TOTAL 0.9 mg/dL (0.2-1.3); BLOOD UREA NITROGEN 15 mg/dL (7-20); CALCIUM 9.3 mg/dL (8.4-10.2); CARBON DIOXIDE 22 mmol/L (22-30); CHLORIDE 97 mmol/L (98-107); GLUCOSE 77 mg/dL (75-110); TOTAL PROTEIN 8.2 g/dL (6.3-8.2)
[2019-07-24 15:19] LABS: POTASSIUM 4.4 mmol/L (3.6-5.0)
[2019-07-24 16:38] VITALS: BP 129/73
--- NOTE | 2019-07-24 22:53 | EKG REPORT ---
SEVERITY:- OTHERWISE NORMAL ECG - SINUS TACHYCARDIA BORDERLINE LEFT AXIS DEVIATION : Confirmed by: Esperanza Kelley 24-Jul-2019 22:52:52
== END 2019-07-24 16:38 | disposition home or self-care (01) ==
LOC: ER 12:13
DX: R19.7 Diarrhea, unspecified (principal); D72.829 Elevated white blood cell count, unspecified; R00.0 Tachycardia, unspecified; E11.9 Type 2 diabetes mellitus without complications; G71.00 Muscular dystrophy, unspecified; I10 Essential (primary) hypertension; J45.909 Unspecified asthma, uncomplicated; Z88.0 Allergy status to penicillin; Z87.891 Personal history of nicotine dependence
CPT/HCPCS: 93005; 99283; 96360; 36415; 87040; 87070; 81001; 93010; J7030; 96361

== ENCOUNTER → 2019-07-24 | Outpatient (CLI) | payer MEDICAID ==
[2019-07-24 10:27] LABS: ABSOLUTE BASOPHILS # (AUTO) 0.1 10^3/uL (0.0-0.2); ABSOLUTE EOSINOPHILS # (AUTO) 0.3 10^3/uL (0.0-0.6); ABSOLUTE LYMPHOCYTES (AUTO) 2.1 10^3/uL (0.5-4.7); ABSOLUTE MONOCYTES (AUTO) 0.7 10^3/uL (0.1-1.4); ABSOLUTE NEUT (AUTO) 11.8 10^3/uL (1.7-8.2); BASOPHILS % (AUTO) 0.4 % (0-2); EOSINOPHILS % (AUTO) 2.2 % (0-6); HEMATOCRIT 45.4 % (37.9-51.0); HEMOGLOBIN 15.6 g/dL (13.5-17.0); MEAN CORPUSCULAR HEMOGLOBIN 27.8 pg (27.0-33.4); MEAN CORPUSCULAR HGB CONC 34.4 g/dL (32.0-36.0); MEAN CORPUSCULAR VOLUME 81 fl (80-97); PLATELET COUNT 282 10^3/uL (150-450); RED BLOOD COUNT 5.62 10^6/uL (4.35-5.55); RED CELL DISTRIBUTION WIDTH 14.2 % (11.5-14.0); SEGMENTED NEUTROPHILS % (AUTO) 78.4 % (42-78); TOTAL CELLS COUNTED % (AUTO) 100 %
[2019-07-24 10:51] LABS: ANION GAP 13 (5-19); BLOOD UREA NITROGEN 16 mg/dL (7-20); CALCIUM 9.9 mg/dL (8.4-10.2); CARBON DIOXIDE 24 mmol/L (22-30); CHLORIDE 97 mmol/L (98-107); GLUCOSE 87 mg/dL (75-110)
[2019-07-24 11:08] LABS: POTASSIUM 6.2 mmol/L (3.6-5.0)
== END ==
LOC: OD 09:50
PROVIDERS: ATTEND Nurse Practitioner Family
DX: D72.829 Elevated white blood cell count, unspecified (principal); E87.5 Hyperkalemia
CPT/HCPCS: 36415; 80048; 85025

== ENCOUNTER 2019-10-10 14:26 | Emergency (ER) | payer OTHER, MEDICAID ==
[2019-10-10] MEDS ORDERED: IBUPROFEN 800 MG TABLET PO ONE (14:42)
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
[2019-10-10 16:34] VITALS: BP 131/81
== END 2019-10-10 16:38 | disposition home or self-care (01) ==
LOC: ER 14:26
DX: M54.2 Cervicalgia (principal); M54.5 Low back pain; V49.40XA Driver injured in collision with unspecified motor vehicles in traffic accident, initial encounter; M47.816 Spondylosis without myelopathy or radiculopathy, lumbar region; M41.9 Scoliosis, unspecified; M43.14 Spondylolisthesis, thoracic region; M43.16 Spondylolisthesis, lumbar region; I10 Essential (primary) hypertension; J45.909 Unspecified asthma, uncomplicated; E11.9 Type 2 diabetes mellitus without complications
CPT/HCPCS: 72050; 72070; 72110; 99283